=== PATIENT | male | born 1945 | race Caucasian/White ===

== ENCOUNTER → 2017-06-09 | Outpatient (CLI) | payer OTHER ==
[2016-10-14 12:17] VITALS: BP 124/66
[2017-06-09 09:13] LABS: CREATININE 1.04 mg/dL (0.70-1.30)
--- NOTE | 2017-06-11 13:38 | MRI ---
HISTORY: Viral hepatitis-B. Study: MRI of the abdomen with and without contrast. Technique: Multiplanar/multisequence imaging of the liver after 19 cc of Omniscan IV contrast was giv en. MRCP sequences were also performed. Comparison: CT chest dated October 12, 2016. Findings: Multiple benign appearing sub cm cystic lesions are seen within liver. These do not demonstrate contr ast enhancement. The liver otherwise appears normal. The gallbladder is surgically absent. No signs t o suggest cirrhosis or portal hypertension. The visualized spleen, pancreas, kidneys, and adrenal gla nds appear normal. The visualized bowel appears normal. No free air free fluid. No pathologic lymphad enopathy. MRCP sequences demonstrate no evidence of intra/extra ductal biliary dilatation, stone, or focal stenosis. No areas of abnormal contrast enhancement. IMPRESSION: Unremarkable MRI of the abdomen. Reported By:
== END ==
LOC: RAD 08:35
PROVIDERS: ATTEND Internal Medicine
DX: B19.10 Unspecified viral hepatitis B without hepatic coma (principal)
CPT/HCPCS: 36415; 74182; 82565; 84520

== ENCOUNTER 2017-09-06 02:24 | Emergency (ER) | payer OTHER ==
[2017-09-06] MEDS ORDERED: NS 1000 ML 1,000 ML IV ONE (02:39)
[2017-09-06] MEDS ORDERED: NS 1000 ML 1,000 ML ONE (02:41)
[2017-09-06 02:50] VITALS: BMI 25.4
--- NOTE | 2017-09-06 02:51 | DR.GENAD ---
HPI - Complaint/Symptoms Chief Complaint Doctors Comments: Patient states he has been having a cold, cough fever and chill for the past 24 hours getting worst this morning. His states he has had a bad cough with thick mucous for over a week with sore throat and chills and not being able to get him warm tonight. States she has been putting a lot of cover, blankets on the patient and the patient has two pairs of pants and still cannot get warm. Patient denies chest pain or SOB. States he is a patient of Dr. Irwin. He denies tobacco or alcohol usage. States he has been having nocturia and his stomach hurts like he is going to have diarrhea.. States he has not been around anyone with the flu and no other family members are sick. Patient states he has gone to the bathroom two times tonight to have a bowel movement. - Nurses notes reviewed Nurses Notes Review: Yes - Source History Provided: Patient, Family Member - Mode of Arrival Mode of Arrival: Ambulatory - Timing Came on: Gradually - Duration Duration: Constant How lon Duration: Weeks - Location Location: cold, cough, chills - Severity Severity: Moderate - Modifying Factors Worsens:: nothing Improves:: nothing PMH - PMH Past Medical History: Anemia, Arthritis Past Surgical History: Yes Surgical History: Cholecystectomy, Ortho Surgery - Social History Do you use any recreational Drugs:: No ROS - Review of Systems Constitutional: No Symptoms Reported, Chills, Fever, Weakness, Loss of Appetite Eyes: No Symptoms Reported ENTM: No Symptoms Reported, Nose Discharge, Nose Congestion, Throat Pain. negative: See HPI, Ear Pain, Ear Discharge, Pulling on Ears, Hearing Loss, Nose Pain, Epistaxis, Mouth Pain, Mouth Swelling, Loose Teeth, Drooling, Throat Swelling, Ear Foreign Body Respiratoy: No Symptoms Reported, Productive Cough Cardiovascular: No Symptoms Reported. negative: See HPI, Chest Pain, Edema, Palpitations, Syncope, Cyanosis, Skin Mottling, Other Gastrointestinal/Abdominal: Abdominal Pain, Nausea. negative: No Symptoms Reported, See HPI, Constipation, Diarrhea, Vomiting, Food Intolerance, Other Genitourinary: No Symptoms Reported, Frequency. negative: See HPI, Discharge, Dysuria, Hematuria, Pain, Bleeding, Other Neurological: No Symptoms Reported. negative: See HPI, Anxiety, Depressed, Emotional Problems, Headache, Numbness, Paresthesia, Pre-existing Deficit, Seizure, Tingling, Tremors, Weakness, Dizziness, Problems Walking, Speech Problem, Other Musculoskeletal: No Symptoms Reported Integumentary: No Symptoms Reported. negative: See HPI, Change in Color, Change in Hair/Nails, Dryness, Lesions, Lumps, Rash, Itching, Wound, Bruises, Juandice, Other Hematologic/Lymphatic: No Symptoms Reported. negative: See HPI, Anemia, Blood Clots, Easy Bleeding, Easy Bruising, Swollen Glands, Lymphadenopathy, Other Endocrine: No Symptoms Reported Psychiatric: No Symptoms Reported. negative: See HPI, Anxiety, Depression, Hallucinations, Excessive crying, Suicidal, Other PE - Vital Signs Vitals: Temperature 98.7 F Pulse Rate [Standing] 95 Pulse Rate [Sitting] 88 Pulse Rate [Lying] 86 Pulse Rate 92 Respiratory Rate 18 Blood Pressure [Right Arm] 124/66 Blood Pressure [Left Arm] 132/64 Blood Pressure [Standing] 76/49 Blood Pressure [Sitting] 102/61 Blood Pressure [Lying] 108/60 Blood Pressure 87/51 O2 Sat by Pulse Oximetry 92 - General Limitations: No Limitations General Appearance: Alert, In Distress (moderate) - Head Head Exam: Normal Inspection, Atraumatic, Normocephalic - Eyes Eye exam: Normal Appearance, PERRL, EOMI. negative: Scleral Icterus, Conjunctival Injection, Nystagmus, Miosis, Mydrasis, Periorbital Swelling, Periorbital Tenderness, Other - ENT ENT Exam: Normal Exam, Normal Oropharynx, Normal External Ear Exam, Mucous Membranes Moist, TM's Normal Bilaterally External Ear Exam: Normal External Inspection TM/Canal Exam: Bilateral Normal Nose Exam: Normal Nose Exam Mouth Exam: Normal Inspection Throat Exam: Normal Inspection - Neck Neck Exam: Normal Inspection, Full ROM, Trachea Midline - Chest Chest Inspection: Normal Inspection, Symmetric Chest Wall Rise. negative: Tenderness, Rash, Abscess, Other - Respiratory Respiratory Exam: Normal Lung Sounds Bilat Respiratory Exam: Bilateral Clear to Auscultation - Cardiovascular Cardiovascular Exam: Regular Rate, Normal Rhythm, Normal Heart Sounds. negative : Bradycardia, Tachycardia, Irregular Rhythm, Systolic Murmur, Diastolic Murmur , Rubs, Gallop, Clicks, JVD, +S1, +S2, +S3, +S4, Other - Abdominal Exam Abdominal Exam: Normal Inspection, Normal Bowel Sounds, Soft Abdominal Tenderness: Epigastrium, Mild. negative: RUQ, RLQ, LUQ, LLQ, Suprapubic, Diffuse, Moderate, Severe, Other - Extremities Extremities Exam: Normal Inspection, Full ROM, Normal Capillary Refill. negative: Tenderness, Edema, Joint Swelling, Calf Tenderness, Other - Back Back Exam: Normal Inspection, Full ROM. negative: Tenderness, (R) CVA Tenderness, (L) CVA Tenderness, Muscle Spasm, Paraspinal Tenderness, Vertebral Tenderness, Rashes, (R) Sciatic Notch Tenderness, (L) Sciatic Notch Tendern, (R ) Straight Leg Raise, (L) Straight Leg Raise, Other - Neurologic Neurological Exam: Alert, Oriented X3, CN II-XII Intact, Reflexes Normal. negative: Normal Gait (gait not tested) - Psychiatric Psychiatric Exam: Normal Affect, Normal Mood - Skin Skin Exam: Warm, Dry, Intact, Normal Color ROR - Labs Reviewed Laboratory Results Reviewed?: Yes (all labs and x-ray results reviewed and discussed with patient and spouse) Result Diagrams: 09/06/17 02:45 09/06/17 02:45 Laboratory: WBC 12.9 X10^3/uL (3.6-10.0) H 09/06/17 02:45 RBC 4.38 X10^6/uL (4.7-6.0) L 09/06/17 02:45 Hgb 13.8 g/dL (13.5-18.0) 09/06/17 02:45 Hct 40.2 % (42.0-54.0) L 09/06/17 02:45 MCV 91.8 fL (80.0-100.0) 09/06/17 02:45 MCH 31.6 pg (27.0-34.0) 09/06/17 02:45 MCHC 34.4 g/dL (33.0-35.0) 09/06/17 02:45 RDW 12.0 % (11.6-16.5) 09/06/17 02:45 Plt Count 137 X10^3/uL (150.0-450.0) L 09/06/17 02:45 MPV 8.4 fL (7.4-11.0) 09/06/17 02:45 Neut % 89.2 % (42.0-75.0) H 09/06/17 02:45 Lymph % 4.9 % (21.0-51.0) L 09/06/17 02:45 [place] % 5.7 % (0.0-13.0) 09/06/17 02:45 Eos % 0.0 % (0.9-2.9) L 09/06/17 02:45 Baso % 0.2 % (0.2-1.0) 09/06/17 02:45 Neut # 11.5 x10^3/uL (2.2-4.8) H 09/06/17 02:45 Lymph # 0.6 X10^3/uL (1.3-2.9) L 09/06/17 02:45 [place] # 0.7 x10^3/uL (0.3-0.8) 09/06/17 02:45 Eos # 0.0 x10^3/uL (0.0-0.2) 09/06/17 02:45 Baso # 0.0 X10^3/uL (0.0-0.1) 09/06/17 02:45 Absolute Nucleated RBC 0.0 /100WBC 09/06/17 02:45 Sodium 138 mmol/L (136-145) 09/06/17 02:45 Corrected Sodium 140 mmol/L (136-145) 09/06/17 02:45 Potassium 3.8 mmol/L (3.5-5.1) 09/06/17 02:45 Chloride 101 mmol/L (98-107) 09/06/17 02:45 Carbon Dioxide 24.7 mmol/L (21-32) 09/06/17 02:45 BUN 18 mg/dL (7-18) 09/06/17 02:45 Creatinine 1.36 mg/dL (0.70-1.30) H 09/06/17 02:45 Est GFR (MDRD) Af Amer > 60 (>60) 09/06/17 02:45 Est GFR (MDRD) Non-Af 55 (>60) L 09/06/17 02:45 Glucose 190 mg/dL (65-99) H 09/06/17 02:45 Calcium 8.5 mg/dL (8.5-10.1) 09/06/17 02:45 Corrected Calcium TNP 09/06/17 02:45 Total Bilirubin 1.20 mg/dL (0.2-1.0) H 09/06/17 02:45 AST 25 Units/L (15-37) 09/06/17 02:45 ALT 19 Units/L (12-78) 09/06/17 02:45 Alkaline Phosphatase 58 Units/L (46-116) 09/06/17 02:45 Total Protein 7.2 g/dL (6.4-8.2) 09/06/17 02:45 Albumin 3.4 g/dL (3.4-5.0) 09/06/17 02:45 Globulin 3.8 g/dL (2.5-4.5) 09/06/17 02:45 Albumin/Globulin Ratio 0.9 Ratio (1.1-2.1) L 09/06/17 02:45 Amylase 39 Units/L (25-115) 09/06/17 02:45 Lipase 91 Units/L (73-393) 09/06/17 02:45 Specimen Type Clean catch urine 09/06/17 03:17 Urine Color Mirtha (YELLOW) 09/06/17 03:17 Urine Appearance Clear (CLEAR) 09/06/17 03:17 Urine pH 6.5 (5.0 - 8.0) 09/06/17 03:17 Ur Specific [place] 1.010 (1.000-1.030) 09/06/17 03:17 Urine Protein 2+ (NEGATIVE) 09/06/17 03:17 Urine Glucose (UA) Negative (NEGATIVE) 09/06/17 03:17 Urine Ketones 1+ (NEGATIVE) 09/06/17 03:17 Urine Occult Blood 1+ (NEGATIVE) 09/06/17 03:17 Urine Nitrite Negative (NEGATIVE) 09/06/17 03:17 Urine Bilirubin Negative (NEGATIVE) 09/06/17 03:17 Urine Urobilinogen 1+ (NORMAL) 09/06/17 03:17 Ur Leukocyte Esterase 1+ (NEGATIVE) 09/06/17 03:17 Urine RBC Rare /HPF (NEGATIVE) 09/06/17 03:17 Urine WBC 0-1 /HPF (NEGATIVE) 09/06/17 03:17 Ur Squamous Epith Cells Rare /HPF (NEGATIVE) 09/06/17 03:17 Urine Bacteria Negative /HPF (NEGATIVE) 09/06/17 03:17 Urine Mucus Few /HPF (NEGATIVE) 09/06/17 03:17 Ur Culture Indicated? No/not indicated 09/06/17 03:17 Influenza Type A (PCR) Negative (NEGATIVE) 09/06/17 02:39 Influenza Type B (PCR) Negative (NEGATIVE) 09/06/17 02:39 Streptococcus Screen Negative (NEGATIVE) 09/06/17 03:17 - XRAY XRAY Interpreted by: Radiologist (Abdominal series: No acute cardiopulmonary abnormality. Findings suggest constipation.) - Diagnosis Discharge Problem: Orthostatic hypotension, Hyperglycemia, Pharyngitis Bronchitis, acute Qualifiers: Bronchitis organism: other organism Qualified Code(s): J20.8 - Acute bronchitis due to other specified organisms Constipation Qualifiers: Constipation type: other constipation type Qualified Code(s): K59.09 - Other constipation - Discharge Plan Disposition: 01 HOME, SELF-CARE Condition: Stable Prescriptions: Levofloxacin [LEVAQUIN TAB 500 MG *] 500 mg PO DAILY #10 tab - Follow ups/Referrals Follow ups/Referrals: Chan Irwin [Primary Care Provider] - 3 days - Instructions Instructions: Acute Bronchitis, Orthostatic Hypotension, Constipation, Adult, [id number], Hyperglycemia
[2017-09-06 02:56] LABS: BASOPHILS % (AUTO) 0.2 % (0.2-1.0); HEMATOCRIT 40.2 % (42.0-54.0); HEMOGLOBIN 13.8 g/dL (13.5-18.0); LYMPHOCYTES # (AUTO) 0.6 X10^3/uL (1.3-2.9); LYMPHOCYTES % (AUTO) 4.9 % (21.0-51.0); MEAN CORPUSCULAR HEMOGLOBIN 31.6 pg (27.0-34.0); MEAN CORPUSCULAR HGB CONC 34.4 g/dL (33.0-35.0); MEAN CORPUSCULAR VOLUME 91.8 fL (80.0-100.0); MEAN PLATELET VOLUME 8.4 fL (7.4-11.0); MONOCYTES # (AUTO) 0.7 x10^3/uL (0.3-0.8); MONOCYTES % (AUTO) 5.7 % (0.0-13.0); NEUTROPHILS # (AUTO) 11.5 x10^3/uL (2.2-4.8); NEUTROPHILS % (AUTO) 89.2 % (42.0-75.0); PLATELET COUNT 137 X10^3/uL (150.0-450.0); RED BLOOD COUNT 4.38 X10^6/uL (4.7-6.0); WHITE BLOOD COUNT 12.9 X10^3/uL (3.6-10.0)
[2017-09-06] MEDS ORDERED: ZOFRAN INJ 4 MG VIAL IVP ONE (02:57)
[2017-09-06 03:10] LABS: ALANINE AMINOTRANSFERASE 19 Units/L (12-78); ALBUMIN 3.4 g/dL (3.4-5.0); ALKALINE PHOSPHATASE 58 Units/L (46-116); AMYLASE 39 Units/L (25-115); ASPARTATE AMINO TRANSFERASE 25 Units/L (15-37); BLOOD UREA NITROGEN 18 mg/dL (7-18); CALCIUM 8.5 mg/dL (8.5-10.1); CARBON DIOXIDE 24.7 mmol/L (21-32); CHLORIDE 101 mmol/L (98-107); COR NA(FOR HYPERGLY) 140 mmol/L (136-145); CREATININE 1.36 mg/dL (0.70-1.30); LIPASE 91 Units/L (73-393); SODIUM 138 mmol/L (136-145); TOTAL PROTEIN 7.2 g/dL (6.4-8.2); eGFR BLACK RACES > 60 (>60); eGFR NON BLACK RACES 55 (>60)
[2017-09-06 03:43] LABS: BILIRUBIN,URINE NEGATIVE (NEGATIVE); BLOOD/HEMOGLOBIN,URINE 1+ (NEGATIVE); GLUCOSE, URINE NEGATIVE (NEGATIVE); KETONES,URINE 1+ (NEGATIVE); LEUKOCYTE ESTERASE ,URINE 1+ (NEGATIVE); NITRITES,URINE NEGATIVE (NEGATIVE); PH,URINE 6.5 (5.0 - 8.0); PROTEIN,URINE 2+ (NEGATIVE); UROBILINOGEN,URINE 1+ (NORMAL)
--- NOTE | 2017-09-06 03:47 | RAD ---
Acute abdominal series, four views Indication: Abdominal pain Comparison: None Findings: The heart size is normal. No focal consolidation, effusion or pneumothorax is identified. M oderate stool is present throughout the colon. The bowel gas pattern is otherwise nonobstructive. No free air or pneumatosis is identified. No pathologic calcifications are seen. Visualized osseous stru ctures are intact. Impression: No acute cardiopulmonary abnormality. Findings suggestive for constipation. Otherwise, no acute abdominal abnormality. Reported By:
[2017-09-06 03:54] LABS: APPEARANCE,URINE CLEAR (CLEAR); BACTERIA,URINE NEGATIVE /HPF (NEGATIVE); COLOR,URINE AMBER (YELLOW); MUCUS,URINE FEW /HPF (NEGATIVE); RBC,URINE RARE /HPF (NEGATIVE); SQUAMOUS EPITHELIAL CELL,UR RARE /HPF (NEGATIVE)
[2017-09-06] MEDS ORDERED: ROCEPHIN VIAL 1 GM 1 GM in NS 100 ML IV + SPIKE MINIBAG* 100 ML IV ONE (04:21)
[2017-09-06] MEDS ORDERED: NS 100 ML IV 100 ML IV ONE (04:35)
[2017-09-06] MEDS ORDERED: ROCEPHIN VIAL 1 GM ONE (04:35)
[2017-09-06] MEDS ORDERED: NS 250 ML IV 250 ML IV ONE ×2 (04:59)
[2017-09-06 05:31] VITALS: BP 124/67
== END 2017-09-06 05:31 | disposition home or self-care (01) ==
LOC: ER 02:24
DX: J20.8 Acute bronchitis due to other specified organisms (principal); I95.1 Orthostatic hypotension; K59.09 Other constipation; R73.9 Hyperglycemia, unspecified; J02.9 Acute pharyngitis, unspecified
CPT/HCPCS: 36415; 74022; 80053; 81001; 82150; 83690; 85025; 87070; 87502; 87880; 96365; 96367; 96374; 99282; 99283; A4216; A4222; J0696

== ENCOUNTER 2023-04-21 04:04 | Observation (INO) ==
[2023-04-21 04:27] VITALS: TEMP 98.2; BMI 23.6
--- NOTE | 2023-04-21 04:31 | EKG ---
Test Reason : CHEST PAIN Blood Pressure : */* mmHG Vent. Rate : 67 BPM Atrial Rate : 67 BPM P-R Int : 194 ms QRS Dur : 144 ms QT Int : 474 ms P-R-T Axes : 79 5 43 degrees QTc Int : 500 ms Normal sinus rhythm with sinus arrhythmia Possible Left atrial enlargement Right bundle branch block Abnormal ECG No previous ECGs available Confirmed by Ranulfo Alatorre ([id number]) on 04/21/2023 8:04:22 AM Referred By: Confirmed By: Ranulfo Alatorre
[2023-04-21 04:38] LABS: BASOPHILS % (AUTO) 0.6 % (0.2-1.0); EOSINOPHILS # (AUTO) 0.4 x10^3/uL (0.0-0.2); EOSINOPHILS % (AUTO) 8.6 % (0.9-2.9); HEMATOCRIT 39.7 % (42.0-54.0); HEMOGLOBIN 13.6 g/dL (13.5-18.0); LYMPHOCYTES # (AUTO) 1.6 X10^3/uL (1.3-2.9); LYMPHOCYTES % (AUTO) 33.8 % (21.0-51.0); MEAN CORPUSCULAR HEMOGLOBIN 32.3 pg (27.0-34.0); MEAN CORPUSCULAR HGB CONC 34.3 g/dL (33.0-35.0); MONOCYTES # (AUTO) 0.5 x10^3/uL (0.3-0.8); MONOCYTES % (AUTO) 10.2 % (0.0-13.0); NEUTROPHILS # (AUTO) 2.2 x10^3/uL (2.2-4.8); NEUTROPHILS % (AUTO) 46.8 % (42.0-75.0); PLATELET COUNT 118 X10^3/uL (150.0-450.0); RED BLOOD COUNT 4.22 X10^6/uL (4.7-6.0); RED CELL DISTRIBUTION WIDTH 12.7 % (11.6-16.5); WHITE BLOOD COUNT 4.7 X10^3/uL (3.6-10.0)
--- NOTE | 2023-04-21 04:39 | DR.CP ---
HPI Time Seen Time Seen by Provider: 04/21/23 04:25 PCP Primary Care Physician: SCHUYLER HPI Comment HPI Comment: Patient is 77yr old male in er with mid midsternal chest pain, sharp, 10/10 that started suddenly at 03:15 waking him from sleep. Denies sim ilar previous chest pain. Complaint Chief Complaint:: PT AMBULATORY IN ED WITH C/O MIDSTERNAL CHEST PAIN. STATES HE WOKE UP FROM SLEEP AROUND 3:15 WITH SEVERE CHEST PAIN. COVID-19 Coronavirus risk:travel/contact w/high risk person: No Has patient experienced Coronavirus symptoms: No Reviewed Nurses Notes Review: Yes Source History Provided: Patient Mode of Arrival Mode of Arrival: Ambulatory Timing Onset of Chief Complaint: 04/21/23 PMH PMH Past Medical History: Yes Past Medical History: Anemia, Arthritis, COPD, Coronary Artery Disease, Dyslipidemia and Liver Disease Past Medical History Comment: THROAT CANCER SKIN CANCER Past Surgical History: Yes Surgical History: Abdominal Surgery, Angioplasty/Stents, Cholecystectomy and Ortho Surgery Past Surgical History Comment: HERNIA REPAIR LEFT THUMB Family History History of Family Medical Conditions: Yes Family Medical History: Cancer and Coronary Artery Disease Social History Does patient currently use any type of tobacco product: No Have you used tobacco products in the last 12 months: No Type of Tobacco Use: None Does any household member use tobacco: No Alcohol Use: None Do you use any recreational Drugs:: No Lives With: Spouse Lives Where: Home Travel Risk Coronavirus risk:travel/contact w/high risk person: No Has patient experienced Coronavirus symptoms: No Infectious screening In the last 2 months have you had wt loss of >10#?: NO Have you had fever, night sweats or hemotysis?: No Have you traveled outside the country in the last 6 months?: No Isolation: Standard PE Vitals Vitals: Vital Signs Temperature 98.2 F Pulse Rate 62 Pulse Rate 59 Pulse Rate 62 Pulse Rate 62 Pulse Rate 64 Pulse Rate 62 Pulse Rate 65 Pulse Rate 67 Pulse Rate 70 Pulse Rate 68 Respiratory Rate 19 Respiratory Rate 19 Respiratory Rate 21 Respiratory Rate 16 Respiratory Rate 17 Respiratory Rate 13 Respiratory Rate 16 Respiratory Rate 20 Respiratory Rate 19 Respiratory Rate 22 Blood Pressure 145/73 Blood Pressure 160/78 Blood Pressure 149/75 Blood Pressure 172/91 Blood Pressure 165/94 Blood Pressure 148/70 O2 Sat by Pulse Oximetry 95 O2 Sat by Pulse Oximetry 97 O2 Sat by Pulse Oximetry 97 O2 Sat by Pulse Oximetry 95 O2 Sat by Pulse Oximetry 96 O2 Sat by Pulse Oximetry 95 O2 Sat by Pulse Oximetry 96 O2 Sat by Pulse Oximetry 97 O2 Sat by Pulse Oximetry 97 O2 Sat by Pulse Oximetry 95 ROR Labs Reviewed 04/21/23 04:25 04/21/23 04:25 Laboratory: WBC 4.7 X10^3/uL (3.6-10.0) 04/21/23 04:25 RBC 4.22 X10^6/uL (4.7-6.0) L 04/21/23 04:25 Hgb 13.6 g/dL (13.5-18.0) 04/21/23 04:25 Hct 39.7 % (42.0-54.0) L 04/21/23 04:25 MCV 94.0 fL (80.0-100.0) 04/21/23 04:25 MCH 32.3 pg (27.0-34.0) 04/21/23 04:25 MCHC 34.3 g/dL (33.0-35.0) 04/21/23 04:25 RDW 12.7 % (11.6-16.5) 04/21/23 04:25 Plt Count 118 X10^3/uL (150.0-450.0) L 04/21/23 04:25 MPV 9.0 fL (7.4-11.0) 04/21/23 04:25 Neut % (Auto) 46.8 % (42.0-75.0) 04/21/23 04:25 Lymph % (Auto) 33.8 % (21.0-51.0) 04/21/23 04:25 [place] % (Auto) 10.2 % (0.0-13.0) 04/21/23 04:25 Eos % (Auto) 8.6 % (0.9-2.9) H 04/21/23 04:25 Baso % (Auto) 0.6 % (0.2-1.0) 04/21/23 04:25 Neut # (Auto) 2.2 x10^3/uL (2.2-4.8) 04/21/23 04:25 Lymph # (Auto) 1.6 X10^3/uL (1.3-2.9) 04/21/23 04:25 [place] # (Auto) 0.5 x10^3/uL (0.3-0.8) 04/21/23 04:25 Eos # (Auto) 0.4 x10^3/uL (0.0-0.2) H 04/21/23 04:25 Baso # (Auto) 0.0 X10^3/uL (0.0-0.1) 04/21/23 04:25 Absolute Nucleated RBC 0.0 /100WBC 04/21/23 04:25 PT 15.7 SECONDS (11.8-14.3) 04/21/23 04:25 INR Target Range - 04/21/23 04:25 INR 1.28 (0.8-1.3) 04/21/23 04:25 APTT 35.6 SECONDS (22.9-36.5) 04/21/23 04:25 PTT Comment - 04/21/23 04:25 D-Dimer 0.40 ug/ml (0.0-0.57) 04/21/23 04:25 Sodium 141 mmol/L (136-145) 04/21/23 04:25 Corrected Sodium TNP 04/21/23 04:25 Potassium 3.6 mmol/L (3.5-5.1) 04/21/23 04:25 Chloride 102 mmol/L (98-107) 04/21/23 04:25 Carbon Dioxide 32.6 mmol/L (21-32) H 04/21/23 04:25 BUN 18 mg/dL (7-18) 04/21/23 04:25 Creatinine 0.94 mg/dL (0.70-1.30) 04/21/23 04:25 Est GFR (MDRD) Af Amer > 60 (>60) 04/21/23 04:25 Est GFR (MDRD) Non-Af > 60 (>60) 04/21/23 04:25 Glucose 83 mg/dL (65-99) 04/21/23 04:25 Calcium 8.5 mg/dL (8.5-10.1) 04/21/23 04:25 Corrected Calcium TNP 04/21/23 04:25 Total Bilirubin 0.70 mg/dL (0.2-1.0) 04/21/23 04:25 AST 48 Units/L (15-37) H 04/21/23 04:25 ALT 30 Units/L (12-78) 04/21/23 04:25 Alkaline Phosphatase 82 Units/L (46-116) 04/21/23 04:25 Creatine Kinase 87 Units/L (39-308) 04/21/23 06:28 Troponin I High Sens 8.8 ng/L (4.0-60.0) 04/21/23 06:28 Total Protein 7.0 g/dL (6.4-8.2) 04/21/23 04:25 Albumin 3.9 g/dL (3.4-5.0) 04/21/23 04:25 Globulin 3.1 g/dL (2.5-4.5) 04/21/23 04:25 Albumin/Globulin Ratio 1.3 Ratio (1.1-2.1) 04/21/23 04:25 SARS-CoV-2 (PCR) Negative (NEGATIVE) 04/21/23 04:22 Influenza Type A (PCR) Negative (NEGATIVE) 04/21/23 04:22 Influenza Type B (PCR) Negative (NEGATIVE) 04/21/23 04:22 RSV (PCR) Negative (NEGATIVE) 04/21/23 04:22 Opioid Opioid Risk Tool Age (Rajeev box if 16-45): No History of Preadolescent Sexual Abuse: No Total: 0 Total Score Risk Category: Low Risk Copyright: Tom KING predicting aberrant behaviors Discharge Plan Discharge Plan Patient Disposition: 01 HOME, SELF-CARE Condition: Stable Prescriptions: No Action celecoxib 200 mg capsule 200 mg PO BID PRN (Reason: pain) atorvastatin 80 mg tablet 80 mg PO QDAY clopidogrel 75 mg tablet 75 mg PO QDAY tamsulosin 0.4 mg capsule 0.4 mg PO QPM albuterol sulfate 90 mcg/actuation HFA aerosol inhaler 1 puff INHALATION QDAY PRN budesonide-formoterol [Symbicort] 80-4.5 mcg/actuation HFA aerosol inhaler 2 puff INHALATION BID silodosin 4 mg capsule 4 mg PO QDAY Vemlidy 25 mg tablet 25 mg PO QDAY baclofen 5 mg tablet 5 mg PO BID Health Concerns: Post Hospitalization: new medications and changes needed to prevent readmission or further decline. Pt educated and given instructions on all concerns. Plan of Treatment: Continue with present treatment and follow up plan. Pt is to keep follow up appointment as instructed and take medications as ordered. Orders to Discharge Patient Discharge Orders: Transfer (Routine); Ordered 04/21/23 Ordered By: LEELA DEVRIES Follow ups/Referrals Follow ups/Referrals: Chan Irwin [Primary Care Provider] - 3 days Instructions Stand Alone Forms: Post Hospital Follow Up Care
[2023-04-21 04:47] LABS: ALANINE AMINOTRANSFERASE 30 Units/L (12-78); ALBUMIN 3.9 g/dL (3.4-5.0); ALKALINE PHOSPHATASE 82 Units/L (46-116); ASPARTATE AMINO TRANSFERASE 48 Units/L (15-37); BLOOD UREA NITROGEN 18 mg/dL (7-18); CALCIUM 8.5 mg/dL (8.5-10.1); CARBON DIOXIDE 32.6 mmol/L (21-32); CHLORIDE 102 mmol/L (98-107); CREATINE KINASE 97 Units/L (39-308); CREATININE 0.94 mg/dL (0.70-1.30); GLUCOSE 83 mg/dL (65-99); POTASSIUM 3.6 mmol/L (3.5-5.1); SODIUM 141 mmol/L (136-145); eGFR NON BLACK RACES > 60 (>60)
[2023-04-21] MEDS ORDERED: MORPHINE SULFATE INJ 4 MG IVP ONE (05:05)
[2023-04-21] MEDS ORDERED: ZOFRAN INJ 4 MG VIAL IVP ONE (05:05)
[2023-04-21] MEDS ORDERED: ZOFRAN INJ 4 MG VIAL ONE (05:07)
[2023-04-21] MEDS ORDERED: MORPHINE SULFATE INJ 4 MG ONE (05:07)
[2023-04-21 05:08] LABS: INR 1.28 (0.8-1.3)
--- NOTE | 2023-04-21 06:06 | RAD ---
HISTORYMidsternal chest painSTUDYChest AP portableCOMPARISONChest CT 05/20/21FINDINGSHeart is mildly enlarged. No congestive heart failure is noted. [place] normal. Aorta is calcified. Lungs are hyperinflated but free of acute infiltrates. There is abnormal parenchymal density in the right lung apex which could represent a real finding or could be due to a confluence of overlying skeletal shadows. Correlation with chest CT is recommended. No pleural effusions are identified. Bony thorax is unremarkable.IMPRESSIONAbnormal parenchymal density in the right lung apex which could represent pleural parenchymal scarring, confluence of overlying skeletal shadows, or an apical mass. Chest CT WITH CONTRAST is recommended for further evaluation.Hyperinflation consistent with COPD in the appropriate clinical settingNo acute infiltratesElectronically signed by: GEMMA SIMON (Apr 21, 2023 06:04:27)
[2023-04-21] MEDS ORDERED: NS 100 ML IV 100 ML ONE (06:15)
[2023-04-21] MEDS ORDERED: OMNIPAQUE 350 mg/mL 100 mL BTL 100 ML ONE (06:16)
[2023-04-21 06:22] VITALS: BP 145/73
--- NOTE | 2023-04-21 07:12 | CT ---
HISTORYAbnormal chest x-raySTUDYCT chest with contrastTechnique: Axial post-contrast images with coronal and sagittal reformats. Dose reduction procedures were used with mA/kv adjusted for body size.[id number] on of the mediastinum demonstrated no evidence for mediastinal mass, enlarged mediastinal or enlarged hilar adenopathy. There is dilatation of the ascending aorta maximum AP diameter 4.2 cm, maximum transverse diameter 4 cm. Coronary artery calcifications are present. No pleural effusions are identified. No chest wall or axillary abnormality is identified. Those portions of the upper abdominal organs visualized appeared within normal limits. Examination of the lung rodriguez demonstrated biapical pleural parenchymal scarring right slightly greater than left likely accounting for the abnormal apical density noted on the recent chest x-ray. Finding is stable when compared to the prior examination. No significant nodules, masses, alveolar infiltrates, areas of consolidation, peribronchial thickening, or bronchiectasis identified. Bibasilar subsegmental atelectasis present.IMPRESSIONBiapical pleural parenchymal scarring right slightly greater than left and likely accounting for the abnormal density noted on the recent chest x-ray. A right apical mass is not felt to be present.Lungs clear with the exception of areas of bibasilar subsegmental atelectasis, stageDilatation of the ascending thoracic aorta maximum diameter AP 4.2 cm, transverse 4 cm.Electronically signed by: GEMMA SIMON (Apr 21, 2023 07:11:26)
[2023-04-21] MEDS ORDERED: CELEBREX PO PRN (07:56)
[2023-04-21] MEDS ORDERED: VENTOLIN or PROAIR HFA IN PRN (07:56)
[2023-04-21] MEDS ORDERED: PROVENTIL NEB TX 0.083% 2.5MG/ 3ML NEB PRN ×2 (08:00→08:02)
[2023-04-21 08:01] VITALS: RESP 15; O2SAT 97
[2023-04-21] MEDS ORDERED: PLAVIX PO SCH (09:00)
[2023-04-21] MEDS ORDERED: TENOFOVIR ALAFENAMIDE 25 MG PO SCH ×2 (09:00→21:00)
[2023-04-21] MEDS ORDERED: SILODOSIN 4 MG PO SCH (09:00)
[2023-04-21] MEDS ORDERED: LIPITOR TAB 80 MG PO SCH ×2 (09:00→21:00)
[2023-04-21] MEDS ORDERED: LIORESAL PO SCH (09:00)
[2023-04-21] MEDS ORDERED: BUDESONIDE FORMOTEROL IN SCH (09:00)
[2023-04-21] MEDS ORDERED: [UNRECOGNIZED DRUG - OTHER] IN SCH (09:00)
[2023-04-21] MEDS ORDERED: PULMICORT NEB TX 0.5 MG NEB SCH (09:00)
[2023-04-21] MEDS ORDERED: PLAVIX ONE (09:03)
[2023-04-21 10:04] VITALS: PULSE 57
--- NOTE | 2023-04-21 10:12 | EKG ---
Test Reason : chest pain Blood Pressure : */* mmHG Vent. Rate : 53 BPM Atrial Rate : 53 BPM P-R Int : 184 ms QRS Dur : 134 ms QT Int : 464 ms P-R-T Axes : 67 1 38 degrees QTc Int : 435 ms Sinus bradycardia Right bundle branch block Abnormal ECG When compared with ECG of 21-APR-2023 04:29, QT has shortened Confirmed by Ranulfo Alatorre ([id number]) on 04/22/2023 8:23:38 AM Referred By: Confirmed By: Ranulfo Alatorre
--- NOTE | 2023-04-21 10:43 | DR.CONSULT ---
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- woke up with vague left sided cp- came to ER- initial ekg: nsr lae rbbb- 2 trops seperated by 2 hours ok, no ekg change at 6 hour ekg- feels better- walking to bath[place]- echo pending- has 4.2 cm TAA he never knew of that will need f/u ct 6 months Past Medical History Past Medical History: Anemia, Arthritis, COPD, Coronary Artery Disease, Dyslipidemia and Liver Disease Additional Medical History: Cataracts, Hepatitis B, Hx of hernia, Back Pain, Previous Blood Transfusion, Throat Cancer w/ Radiation, Skin Cancer Past Surgical History Surgical History: Abdominal Surgery, Angioplasty/Stents, Cholecystectomy and Ortho Surgery Additional Surgical History: Skin Cancer removed, Cataracts removed Family History Family Medical History: Cancer and Coronary Artery Disease Social History Does patient currently use any type of tobacco product: No Have you used tobacco products in the last 12 months: No Type of Tobacco Use: None Does any household member use tobacco: No Alcohol Use: None Drug Use: None Medications Home Medications: aspirin Allergy (Verified 09/06/17 02:50) shrimp Allergy (Verified 09/06/17 02:50) CONTINUE taking the following medications albuterol sulfate 90 mcg/actuation aerosol inhaler 1 puff inhalation QDAY PRN 04/21/23 [History] atorvastatin 80 mg tablet 80 mg PO QDAY 04/21/23 [History] baclofen 5 mg tablet 5 mg PO BID 04/21/23 [History] budesonide-formoterol HFA 80 mcg-4.5 mcg/actuation aerosol inhaler (Symbicort) 2 puff inhalation BID 04/21/23 [History] celecoxib 200 mg capsule 200 mg PO BID PRN pain 04/21/23 [History] clopidogrel 75 mg tablet 75 mg PO QDAY 04/21/23 [History] tamsulosin 0.4 mg capsule (Flomax) 0.4 mg PO HS 04/21/23 [History] tenofovir alafenamide 25 mg tablet (Vemlidy) 25 mg PO QDAY 04/21/23 [History] Physical Exam Vital Signs: Vital Signs Temperature 98.2 F Pulse Rate 57 Pulse Rate 53 Pulse Rate 50 Pulse Rate 52 Pulse Rate 55 Pulse Rate 63 Pulse Rate 62 Pulse Rate 59 Pulse Rate 62 Pulse Rate 62 Pulse Rate 64 Pulse Rate 62 Pulse Rate 65 Pulse Rate 67 Pulse Rate 70 Pulse Rate 68 Respiratory Rate 15 Respiratory Rate 26 Respiratory Rate 24 Respiratory Rate 30 Respiratory Rate 18 Respiratory Rate 19 Respiratory Rate 19 Respiratory Rate 21 Respiratory Rate 16 Respiratory Rate 17 Respiratory Rate 13 Respiratory Rate 16 Respiratory Rate 20 Respiratory Rate 19 Respiratory Rate 22 Blood Pressure 145/73 Blood Pressure 160/78 Blood Pressure 149/75 Blood Pressure 172/91 Blood Pressure 165/94 Blood Pressure 148/70 O2 Sat by Pulse Oximetry 97 O2 Sat by Pulse Oximetry 97 O2 Sat by Pulse Oximetry 97 O2 Sat by Pulse Oximetry 97 O2 Sat by Pulse Oximetry 97 O2 Sat by Pulse Oximetry 92 O2 Sat by Pulse Oximetry 95 O2 Sat by Pulse Oximetry 97 O2 Sat by Pulse Oximetry 97 O2 Sat by Pulse Oximetry 95 O2 Sat by Pulse Oximetry 96 O2 Sat by Pulse Oximetry 95 O2 Sat by Pulse Oximetry 96 O2 Sat by Pulse Oximetry 97 O2 Sat by Pulse Oximetry 97 O2 Sat by Pulse Oximetry 95 alert ox3 nad no chest wall tenderness clear lungs hr 60 main soft abdomen no edema Plan (1) Chest pain: Status: Acute Narrative Support Text: get 3rd trop/ await echo- if both ok and able to walk around without issues- then can d/c to f/u with primary dietary manager (2) Hyperlipidemia: Status: Acute (3) Carotid stenosis: Status: Acute (4) Thoracic aortic aneurysm (TAA): Status: Acute Narrative Support Text: needs f/u CTA in 6-12 months
[2023-04-21] MEDS ORDERED: LOVENOX INJ 40 MG SYR SC SCH (12:00)
[2023-04-21] MEDS ORDERED: FLOMAX PO SCH ×2 (21:00)
== END 2023-04-21 13:05 | disposition home or self-care (01) ==
LOC: ER 04:12 → U 04:12
PROVIDERS: ADMIT Internal Medicine; ATTEND Internal Medicine

== ENCOUNTER 2024-01-23 17:15 | Inpatient (IN) ==
--- NOTE | 2024-01-23 17:36 | DR.N/VMALE ---
HPI Time Seen Time Seen by Provider: 01/23/24 17:20 HPI Comment HPI Comment: Patient has had stabbing chest pain, nausea, chills, sob that began today. 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 Patient had been feeling good prior to today. He has a h/o tobacco use that began at age 9-10 until age 38. H/o throat cancer diagnosed in 2007 tx'd with chemo and radiation therapy, the radiation therapy burned out his epiglottis and patient taught himself to swallow and has never had a G-tube. H/o thoracic aortic Aneurysm, carotid stenosis. 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 Patient denies: hemoptysis, palpitations, syncope, back pain, extremity weakness. PMH PMH Past Medical History: Anemia, Arthritis, COPD, Coronary Artery Disease, Dyslipidemia and Liver Disease Past Surgical History: Yes Surgical History: Abdominal Surgery, Angioplasty/Stents, Cholecystectomy and Ortho Surgery Family History Family Medical History: Cancer and Coronary Artery Disease Social History Do you use any recreational Drugs:: No ROS Review of Systems Constitutional: Chills, Fever and Malaise Eyes: No Symptoms Reported ENTM: No Symptoms Reported Respiratoy: No Symptoms Reported Cardiovascular: Chest Pain Gastrointestinal/Abdominal: Nausea; negative Diarrhea or Vomiting Genitourinary: No Symptoms Reported Neurological: No Symptoms Reported Musculoskeletal: No Symptoms Reported Integumentary: No Symptoms Reported Hematologic/Lymphatic: No Symptoms Reported Endocrine: No Symptoms Reported Psychiatric: No Symptoms Reported All Other Systems: Reviewed and Negative PE Vital Signs Vitals: Vital Signs Temperature 99.8 F Temperature 100.6 F Pulse Rate 66 Pulse Rate 71 Pulse Rate 72 Pulse Rate 70 Pulse Rate 71 Pulse Rate 72 Pulse Rate 72 Pulse Rate 73 Pulse Rate 74 Pulse Rate 75 Pulse Rate 75 Pulse Rate 76 Pulse Rate 79 Pulse Rate 79 Pulse Rate 79 Pulse Rate 79 Pulse Rate 85 Respiratory Rate 22 Respiratory Rate 20 Respiratory Rate 24 Respiratory Rate 23 Respiratory Rate 25 Respiratory Rate 25 Respiratory Rate 27 Respiratory Rate 24 Respiratory Rate 22 Respiratory Rate 25 Respiratory Rate 24 Respiratory Rate 23 Respiratory Rate 26 Respiratory Rate 18 Respiratory Rate 18 Blood Pressure 88/54 Blood Pressure 107/57 Blood Pressure 106/58 Blood Pressure 108/58 Blood Pressure 124/58 Blood Pressure 124/58 Blood Pressure 123/99 Blood Pressure 128/67 Blood Pressure 133/71 Blood Pressure 122/65 Blood Pressure 156/75 O2 Sat by Pulse Oximetry 97 O2 Sat by Pulse Oximetry 97 O2 Sat by Pulse Oximetry 97 O2 Sat by Pulse Oximetry 97 O2 Sat by Pulse Oximetry 97 O2 Sat by Pulse Oximetry 97 O2 Sat by Pulse Oximetry 99 O2 Sat by Pulse Oximetry 97 O2 Sat by Pulse Oximetry 97 O2 Sat by Pulse Oximetry 97 O2 Sat by Pulse Oximetry 97 O2 Sat by Pulse Oximetry 98 O2 Sat by Pulse Oximetry 98 O2 Sat by Pulse Oximetry 99 O2 Sat by Pulse Oximetry 95 General Limitations: No Limitations General Appearance: Alert and In No Apparent Distress Head Head Exam: Normal Inspection Eyes Eye exam: Normal Appearance ENT ENT Exam: Normal Exam Neck Neck Exam: Normal Inspection Chest Chest Inspection: Normal Inspection Respiratory Respiratory Exam: Normal Lung Sounds Bilat Respiratory Exam: Bilateral: Clear to Auscultation Cardiovascular Cardiovascular Exam: Regular Rate and Normal Rhythm Abdominal Exam Abdominal Exam: Normal Inspection, Normal Bowel Sounds and Soft Rectal Rectal Exam: Deferred Exam: Male: Deferred Extremities Extremities Exam: Normal Inspection Back Back Exam: Normal Inspection Neurologic Neurological Exam: Alert and Oriented X3 Psychiatric Psychiatric Exam: Normal Affect and Normal Mood Skin Skin Exam: Warm, Dry, Intact and Normal Color MDM Differential Diagnosis Differential Diagnosis Comment: DDx: Electrolyte disorder,Pneumonia,P E,AMI,Dehydration,Sepsis COURSE Treatment Treatment: Patient was placed in a monitored room IV access was initiated. Labs and tests were ordered. Chest x-ray revealed pneumonia, D-dimer is 0.61, lactic acid 0.6, COVID panel is negative, strep is negative, BUN is 21, creatinine is 1.09, WBC is 7.7, BNP is 236, ABG revealed Ph 7.45/PC02 43/P02 56/02sat 90.0 FI02 21%. Patient's EKG is 1 and 2 did not reveal any acute isc hemic changes/Trop#1 6.9/Trop #2 9.1. Discussed case with Dr. Grande. He has accepted the patient to his service. Patient received azithromycin 500 mg IV in the ED. [facility]OR Labs Reviewed 01/23/24 17:30 01/23/24 17:30 Laboratory: WBC 7.7 X10^3/uL (3.6-10.0) 01/23/24 17:30 RBC 4.08 X10^6/uL (4.7-6.0) L 01/23/24 17:30 Hgb 13.3 g/dL (13.5-18.0) L 01/23/24 17:30 Hct 39.3 % (42.0-54.0) L 01/23/24 17:30 MCV 96.2 fL (80.0-100.0) 01/23/24 17:30 MCH 32.5 pg (27.0-34.0) 01/23/24 17: MCHC 33.8 g/dL (33.0-35.0) 01/23/24 17: RDW 12.5 % (11.6-16.5) 01/23/24 17: Plt Count 138 X10^3/uL (150.0-450.0) L 01/23/24 17:30 Plt Count Comment Decreased (ADEQUATE) 01/23/24 17: MPV 9.1 fL (7.4-11.0) 01/23/24 17:30 Neut % (Auto) 90.5 % (42.0-75.0) H 01/23/24 17:30 Lymph % (Auto) 4.2 % (21.0-51.0) L 01/23/24 17:30 [place] % (Auto) 3.7 % (0.0-13.0) 01/23/24 17:30 Eos % (Auto) 1.3 % (0.9-2.9) 01/23/24 17:30 Baso % (Auto) 0.3 % (0.2-1.0) 01/23/24 17:30 Neut # (Auto) 7.0 x10^3/uL (2.2-4.8) H 01/23/24 17:30 Lymph # (Auto) 0.3 X10^3/uL (1.3-2.9) L 01/23/24 17:30 [place] # (Auto) 0.3 x10^3/uL (0.3-0.8) 01/23/24 17: Eos # (Auto) 0.1 x10^3/uL (0.0-0.2) 01/23/24 17:30 Baso # (Auto) 0.0 X10^3/uL (0.0-0.1) 01/23/24 17: Absolute Nucleated RBC 0.5 /100WBC 01/23/24 17:30 Total Counted 100 01/23/24 17:30 Neutrophils % (Manual) 87 % (39-76) H 01/23/24 17:30 Lymphocytes % (Manual) 7 % (13-43) L 01/23/24 17:30 Monocytes % (Manual) 4 % (4-9) 01/23/24 17:30 Eosinophils % (Manual) 2 % (0-6) 01/23/24 17:30 Plt Morphology Comment Normal (NORMAL) 01/23/24 17:30 RBC Morphology Normal (NORMAL) 01/23/24 17:30 D-Dimer 0.61 ug/ml (0.0-0.57) H 01/23/24 17:30 Sample Site Rra 01/23/24 17:44 ABG pH 7.450 (7.35-7.45) 01/23/24 17:44 ABG pCO2 43.0 mmHg (35.0-45.0) 01/23/24 17:44 ABG pO2 56.0 mmHg (80.0-100.0) L 01/23/24 17:44 ABG HCO3 29.9 mmol/L (22-26) H 01/23/24 17:44 ABG O2 Saturation 90.0 % (90-100) 01/23/24 17:44 ABG Base Excess 5.3 mmol/L (-2.0-2.0) H 01/23/24 17:44 Danielito Test Pos 01/23/24 17:44 A-a Gradient 40.0 mmHg 01/23/24 17:44 FiO2 21.0 01/23/24 17:44 Blood Gas Comments Pt sheryl well eb 01/23/24 17:44 Sodium 141 mmol/L (136-145) 01/23/24 17:30 Corrected Sodium TNP 01/23/24 17:30 Potassium 4.0 mmol/L (3.5-5.1) 01/23/24 17:30 Chloride 105 mmol/L (98-107) 01/23/24 17:30 Carbon Dioxide 33.0 mmol/L (21-32) H 01/23/24 17:30 BUN 21 mg/dL (7-18) H 01/23/24 17:30 Creatinine 1.09 mg/dL (0.70-1.30) 01/23/24 17:30 Est GFR (MDRD) Af Amer > 60 (>60) 01/23/24 17:30 Est GFR (MDRD) Non-Af > 60 (>60) 01/23/24 17:30 Glucose 94 mg/dL (65-99) 01/23/24 17:30 Lactic Acid 0.6 mmol/L (0.4-2.0) 01/23/24 17:30 Calcium 8.7 mg/dL (8.5-10.1) 01/23/24 17:30 Corrected Calcium TNP 01/23/24 17:30 Total Bilirubin 0.60 mg/dL (0.2-1.0) 01/23/24 17:30 AST 29 Units/L (15-37) 01/23/24 17:30 ALT 21 Units/L (12-78) 01/23/24 17:30 Alkaline Phosphatase 81 Units/L (46-116) 01/23/24 17:30 Creatine Kinase 92 Units/L (39-308) 01/23/24 20:30 Troponin I High Sens 9.1 ng/L (4.0-60.0) 01/23/24 20:30 B-Natriuretic Peptide 236 pg/mL (0-79) H 01/23/24 17:30 Total Protein 7.5 g/dL (6.4-8.2) 01/23/24 17:30 Albumin 3.8 g/dL (3.4-5.0) 01/23/24 17:30 Globulin 3.7 g/dL (2.5-4.5) 01/23/24 17:30 Albumin/Globulin Ratio 1.0 Ratio (1.1-2.1) L 01/23/24 17:30 SARS-CoV-2 (PCR) Negative (NEGATIVE) 01/23/24 17:24 Influenza Type A (PCR) Negative (NEGATIVE) 01/23/24 17:24 Influenza Type B (PCR) Negative (NEGATIVE) 01/23/24 17:24 RSV (PCR) Negative (NEGATIVE) 01/23/24 17:24 S. pyogenes (TEM-PCR) Not detected (NOT DETECT) 01/23/24 17:24 Opioid Opioid Risk Tool Age (Rajeev box if 16-45): No History of Preadolescent Sexual Abuse: No Total: 0 Total Score Risk Category: Low Risk Copyright: Tom KING predicting aberrant behaviors Discharge Plan Diagnosis Discharge Problem: Hypoxia, Pneumonia, Elevated d-dimer Discharge Plan Patient Disposition: 09 ADMITTED INPATIENT Condition: Stable Prescriptions: No Action celecoxib 200 mg capsule 200 mg PO BID PRN (Reason: pain) clopidogrel 75 mg tablet 75 mg PO QDAY albuterol sulfate 90 mcg/actuation HFA aerosol inhaler 1 puff INHALATION QDAY PRN budesonide-formoterol [Symbicort] 80-4.5 mcg/actuation HFA aerosol inhaler 2 puff INHALATION BID Vemlidy 25 mg tablet 25 mg PO QDAY baclofen 5 mg tablet 5 mg PO BID tamsulosin [Flomax] 0.4 mg Capsule 0.4 mg PO HS atorvastatin 80 mg tablet 80 mg PO QDAY midodrine 5 mg tablet 5 mg PO BID fludrocortisone 0.1 mg tablet 0.1 mg PO QDAY levalbuterol tartrate 45 mcg/actuation HFA aerosol inhaler 2 puff inhalation Q6HR Health Concerns: Post Hospitalization: new medications and changes needed to prevent readmission or further decline. Pt educated and given instructions on all concerns. Plan of Treatment: Continue with present treatment and follow up plan. Pt is to keep follow up appointment as instructed and take medications as ordered. Orders to Discharge Patient Discharge Orders: Transfer (Routine); Ordered 01/23/24 Ordered By: Maura Gregorio Follow ups/Referrals Follow ups/Referrals: Chan Irwin [Primary Care Provider] - 3 days Instructions Stand Alone Forms: Post Hospital Follow Up Care
--- NOTE | 2024-01-23 17:41 | EKG ---
Test Reason : Shortness of breath Blood Pressure : */* mmHG Vent. Rate : 83 BPM Atrial Rate : 83 BPM P-R Int : 198 ms QRS Dur : 130 ms QT Int : 410 ms P-R-T Axes : 59 -18 23 degrees QTc Int : 481 ms Normal sinus rhythm Right bundle branch block Abnormal ECG When compared with ECG of 21-APR-2023 10:10, Vent. rate has increased BY 30 BPM T wave inversion now evident in Anterior leads QT has lengthened Confirmed by Logan Jaramillo MD ([id number]) on 01/25/2024 6:59:18 AM Referred By: Confirmed By: Logan Jaramillo MD
[2024-01-23 17:46] LABS: ABG BASE EXCESS 5.3 mmol/L (-2.0-2.0); ABG HCO3 29.9 mmol/L (22-26)
[2024-01-23 17:47] LABS: ABG ALLEN TEST POS
[2024-01-23 17:56] LABS: BASOPHILS % (AUTO) 0.3 % (0.2-1.0); EOSINOPHILS # (AUTO) 0.1 x10^3/uL (0.0-0.2); EOSINOPHILS % (AUTO) 1.3 % (0.9-2.9); HEMATOCRIT 39.3 % (42.0-54.0); HEMOGLOBIN 13.3 g/dL (13.5-18.0); LYMPHOCYTES # (AUTO) 0.3 X10^3/uL (1.3-2.9); LYMPHOCYTES % (AUTO) 4.2 % (21.0-51.0); MEAN CORPUSCULAR HEMOGLOBIN 32.5 pg (27.0-34.0); MEAN CORPUSCULAR HGB CONC 33.8 g/dL (33.0-35.0); MEAN CORPUSCULAR VOLUME 96.2 fL (80.0-100.0); MEAN PLATELET VOLUME 9.1 fL (7.4-11.0); MONOCYTES # (AUTO) 0.3 x10^3/uL (0.3-0.8); MONOCYTES % (AUTO) 3.7 % (0.0-13.0); NEUTROPHILS % (AUTO) 90.5 % (42.0-75.0); PLATELET COUNT 138 X10^3/uL (150.0-450.0); RED BLOOD COUNT 4.08 X10^6/uL (4.7-6.0); RED CELL DISTRIBUTION WIDTH 12.5 % (11.6-16.5); WHITE BLOOD COUNT 7.7 X10^3/uL (3.6-10.0)
[2024-01-23 18:03] LABS: ALANINE AMINOTRANSFERASE 21 Units/L (12-78); ALBUMIN 3.8 g/dL (3.4-5.0); ALKALINE PHOSPHATASE 81 Units/L (46-116); ASPARTATE AMINO TRANSFERASE 29 Units/L (15-37); BLOOD UREA NITROGEN 21 mg/dL (7-18); CALCIUM 8.7 mg/dL (8.5-10.1); CHLORIDE 105 mmol/L (98-107); CREATININE 1.09 mg/dL (0.70-1.30); GLUCOSE 94 mg/dL (65-99); SODIUM 141 mmol/L (136-145); TOTAL PROTEIN 7.5 g/dL (6.4-8.2); eGFR NON BLACK RACES > 60 (>60)
[2024-01-23 18:19] LABS: PLATELET MORPHOLOGY COMMENT NORMAL (NORMAL)
[2024-01-23 18:23] LABS: STREP A BY PCR NOT DETECTED (NOT DETECT)
[2024-01-23] MEDS: NS 500 ML IV 500 ML IV ONE (18:31)
--- NOTE | 2024-01-23 20:57 | EKG ---
Test Reason : SHAKING Blood Pressure : */* mmHG Vent. Rate : 71 BPM Atrial Rate : 71 BPM P-R Int : 200 ms QRS Dur : 136 ms QT Int : 420 ms P-R-T Axes : 53 -10 14 degrees QTc Int : 456 ms Normal sinus rhythm Right bundle branch block Abnormal ECG When compared with ECG of 23-JAN-2024 17:38, (Unconfirmed) No significant change was found Confirmed by Logan Jaramillo MD ([id number]) on 01/25/2024 6:58:57 AM Referred By: Confirmed By: Logan Jaramillo MD
[2024-01-23] MEDS: SOLU-Medrol 125 MG VIAL IVP ONE (22:10)
--- NOTE | 2024-01-23 22:50 | RAD ---
EXAM:CHEST, 1 VIEWHISTORY:fever,chills,lk for infn,chf;COMPARISON:04/21/2023.TECHNIQUE: .br.br.br.br There is atherosclerosis in the aortic arch. The pulmonary blood flow is congested. Upper lungs are clear. The left base is clear. There is opacity in the medial right base which could be pneumonia. There is no right pleural effusion.IMPRESSION:Right medial base opacity worrisome for pneumonia.THIS IS AN ELECTRONICALLY VERIFIED FINAL REPORT01/23/2024 10:47 PM - Electronically signed by Nitin Medina MD
[2024-01-24] MEDS: DUONEB 0.5 MG/3 MG (3 mL) NEB SCH (00:15)
[2024-01-24 00:53] VITALS: BMI 23.7
[2024-01-24] MEDS ORDERED: VIBRAMYCIN IV ONE (01:05)
[2024-01-24] MEDS: ZITHROMAX INJ 500 MG VIAL 500 MG in NS 250 ML IV 250 ML IV SCH (01:32)
[2024-01-24] MEDS: VIBRAMYCIN 100 MG in D5W 250 ML IV 250 ML IV SCH (01:33)
[2024-01-24] MEDS: FORTAZ or TAZICEF VIAL INJ 1 G in NS 100 ML IV 100 ML IV SCH (03:37)
[2024-01-24 06:45] LABS: BASOPHILS % (AUTO) 0.1 % (0.2-1.0); HEMATOCRIT 36.5 % (42.0-54.0); HEMOGLOBIN 12.3 g/dL (13.5-18.0); LYMPHOCYTES # (AUTO) 0.4 X10^3/uL (1.3-2.9); LYMPHOCYTES % (AUTO) 2.5 % (21.0-51.0); MEAN CORPUSCULAR HEMOGLOBIN 32.4 pg (27.0-34.0); MEAN CORPUSCULAR HGB CONC 33.8 g/dL (33.0-35.0); MEAN PLATELET VOLUME 9.4 fL (7.4-11.0); MONOCYTES # (AUTO) 0.2 x10^3/uL (0.3-0.8); MONOCYTES % (AUTO) 1.1 % (0.0-13.0); NEUTROPHILS # (AUTO) 13.8 x10^3/uL (2.2-4.8); NEUTROPHILS % (AUTO) 96.3 % (42.0-75.0); PLATELET COUNT 122 X10^3/uL (150.0-450.0); RED CELL DISTRIBUTION WIDTH 12.6 % (11.6-16.5); WHITE BLOOD COUNT 14.3 X10^3/uL (3.6-10.0)
[2024-01-24 06:59] LABS: ALANINE AMINOTRANSFERASE 15 Units/L (12-78); ALBUMIN 3.1 g/dL (3.4-5.0); ALKALINE PHOSPHATASE 57 Units/L (46-116); ASPARTATE AMINO TRANSFERASE 23 Units/L (15-37); BLOOD UREA NITROGEN 19 mg/dL (7-18); CALCIUM 8.4 mg/dL (8.5-10.1); CHLORIDE 105 mmol/L (98-107); COR CA(FOR HYPOALB) 9.1 mg/dL (8.5-10.1); COR NA(FOR HYPERGLY) 140 mmol/L (136-145); CREATININE 0.96 mg/dL (0.70-1.30); GLUCOSE 152 mg/dL (65-99); POTASSIUM 3.7 mmol/L (3.5-5.1); SODIUM 139 mmol/L (136-145); TOTAL PROTEIN 6.6 g/dL (6.4-8.2); eGFR NON BLACK RACES > 60 (>60)
[2024-01-24 07:17] LABS: PLATELET MORPHOLOGY COMMENT NORMAL (NORMAL)
[2024-01-24] MEDS ORDERED: CONSULT PHARMACY - POTASSIUM & MAGNESIUM XX SCH ×2 (08:00)
[2024-01-24] MEDS ORDERED: PULMICORT NEB TX 0.5 MG NEB SCH (09:00)
[2024-01-24] MEDS ORDERED: CELEBREX PO PRN (09:00)
[2024-01-24] MEDS ORDERED: PROVENTIL NEB TX 0.083% 2.5MG/ 3ML NEB SCH (09:00)
[2024-01-24] MEDS: TENOFOVIR ALAFENAMIDE 25 MG PO SCH (09:03)
[2024-01-24] MEDS: K-DUR TAB 20 MEQ PO SCH (09:04)
[2024-01-24] MEDS: LIPITOR TAB 80 MG PO SCH (09:04)
[2024-01-24] MEDS: PROAMATINE PO SCH (09:05)
[2024-01-24] MEDS: SOLU-Medrol 125 MG VIAL IVP SCH ×2 (09:05→19:28)
[2024-01-24] MEDS: MAG-OX TAB PO SCH (09:05)
[2024-01-24] MEDS: PLAVIX PO SCH (09:05)
[2024-01-24] MEDS: FLORINEF PO SCH (09:05)
[2024-01-24] MEDS: LIORESAL PO SCH (09:05)
[2024-01-24] MEDS: PULMICORT NEB TX 0.5 MG NEB SCH (09:59)
[2024-01-24] MEDS: K-RIDER 10 MEQ/100 ML WATER 10 MEQ/100 ML BAG IV SCH (10:25)
[2024-01-24] MEDS: NS 250 ML IV 250 ML IV ONE (10:33)
[2024-01-24] MEDS: PROTONIX INJ 40 MG VIAL IVP SCH (11:34)
[2024-01-24] MEDS: MAGNESIUM SULFATE 1 GRAM/100 mL PREMIX 1 G/100 ML BAG IV ONE (12:38)
[2024-01-24] MEDS: CONSULT PHARMACY - POTASSIUM & MAGNESIUM XX SCH (19:27)
--- NOTE | 2024-01-24 19:54 | DR.H&P ---
H&P History & Physical for Day of: H&P Date: 01/24/24 History of Present Illness History of Present Illness: The patient is a pleasant 78-year-old white male. He has had stabbing chest pain, nausea, chills, and sobbing that began today. 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 The patient had been feeling good before today. He has a h/o tobacco use that began at age 10-10 until age 38. H/o throat cancer was diagnosed in 2007 with chemo and radiation therapy; the radiation therapy burned out his epiglottis, and the patient taught himself to swallow and has never had a G-tube. The patient and I feel like he probably recently aspirated some food and he is developing aspiration pneumonia now. He does have a h/o thoracic aortic Aneurysm and carotid stenosis. 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 The patient denies hemoptysis, palpitations, syncope, back pain, and extremity weakness. This morning, the patient is in good spirits; however, he does have some right anterior rhonchi. The chest x-ray showed a right opacity consistent with pneumonia. He is currently receiving IV azithromycin and Fortaz. We will continue this on him today and repeat a chest x-ray tomorrow. If it is clearing and he is feeling better, we might consider discharging him home, but if he is still not feeling well, we probably will keep him one more day. Past Medical History Past Medical History: Anemia, Arthritis, COPD, Coronary Artery Disease, Dyslipidemia and Liver Disease Additional Medical History: Cataracts, Hepatitis B, Hx of hernia, Back Pain, Previous Blood Transfusion, Throat Cancer w/ Radiation, Skin Cancer Past Surgical History Surgical History: Angioplasty/Stents, Cholecystectomy and Ortho Surgery Additional Surgical History: Skin Cancer removed, Cataracts removed Family History Family Medical History: Cancer and Coronary Artery Disease Social History Does patient currently use any type of tobacco product: No Have you used tobacco products in the last 12 months: No Type of Tobacco Use: None Does any household member use tobacco: No Alcohol Use: None Drug Use: None Medications Home Medications: Home Medications Medication Instructions Recorded Confirmed Type albuterol sulfate 90 mcg/actuation 1 puff inhalation QDAY PRN 04/21/23 01/24/24 History aerosol inhaler budesonide-formoterol HFA 80 2 puff inhalation BID 04/21/23 01/24/24 History mcg-4.5 mcg/actuation aerosol inhaler (Symbicort) celecoxib 200 mg capsule 200 mg PO BID PRN pain 04/21/23 01/23/24 History clopidogrel 75 mg tablet 75 mg PO QDAY 04/21/23 01/23/24 History tenofovir alafenamide 25 mg tablet 25 mg PO QDAY 04/21/23 01/23/24 History (Vemlidy) atorvastatin 80 mg tablet 80 mg PO QDAY 01/23/24 01/23/24 History fludrocortisone 0.1 mg tablet 0.1 mg PO QDAY 01/23/24 01/23/24 History levalbuterol tartrate 45 2 puff inhalation Q6HR 01/23/24 01/23/24 History mcg/actuation aerosol inhaler midodrine 5 mg tablet 5 mg PO BID 01/23/24 01/23/24 History silodosin 4 mg capsule 4 mg PO DAILY 01/24/24 01/24/24 History Allergies Allergies Allergy/AdvReac Type Severity Reaction Status Date / Time aspirin Allergy Verified 09/06/17 02:50 Penicillins Allergy Verified 01/23/24 17:16 shrimp Allergy Verified 09/06/17 02:50 Labs 01/24/24 05:37 01/24/24 05:37 Labs: Laboratory WBC 14.3 X10^3/uL (3.6-10.0) H 01/24/24 05:37 RBC 3.80 X10^6/uL (4.7-6.0) L 01/24/24 05:37 Hgb 12.3 g/dL (13.5-18.0) L 01/24/24 05:37 Hct 36.5 % (42.0-54.0) L 01/24/24 05:37 MCV 96.0 fL (80.0-100.0) 01/24/24 05:37 MCH 32.4 pg (27.0-34.0) 01/24/24 05:37 MCHC 33.8 g/dL (33.0-35.0) 01/24/24 05:37 RDW 12.6 % (11.6-16.5) 01/24/24 05:37 Plt Count 122 X10^3/uL (150.0-450.0) L 01/24/24 05:37 Plt Count Comment Decreased (ADEQUATE) 01/24/24 05:37 MPV 9.4 fL (7.4-11.0) 01/24/24 05:37 Neut % (Auto) 96.3 % (42.0-75.0) H 01/24/24 05:37 Lymph % (Auto) 2.5 % (21.0-51.0) L 01/24/24 05:37 [place] % (Auto) 1.1 % (0.0-13.0) 01/24/24 05:37 Eos % (Auto) 0.0 % (0.9-2.9) L 01/24/24 05:37 Baso % (Auto) 0.1 % (0.2-1.0) L 01/24/24 05:37 Neut # (Auto) 13.8 x10^3/uL (2.2-4.8) H 01/24/24 05:37 Lymph # (Auto) 0.4 X10^3/uL (1.3-2.9) L 01/24/24 05:37 [place] # (Auto) 0.2 x10^3/uL (0.3-0.8) L 01/24/24 05:37 Eos # (Auto) 0.0 x10^3/uL (0.0-0.2) 01/24/24 05:37 Baso # (Auto) 0.0 X10^3/uL (0.0-0.1) 01/24/24 05:37 Absolute Nucleated RBC 0.0 /100WBC 01/24/24 05:37 Total Counted 100 01/24/24 05:37 Neutrophils % (Manual) 98 % (39-76) H 01/24/24 05:37 Lymphocytes % (Manual) 1 % (13-43) L 01/24/24 05:37 Monocytes % (Manual) 1 % (4-9) L 01/24/24 05:37 Eosinophils % (Manual) 2 % (0-6) 01/23/24 17:30 Plt Morphology Comment Normal (NORMAL) 01/24/24 05:37 RBC Morphology Normal (NORMAL) 01/24/24 05:37 D-Dimer 0.61 ug/ml (0.0-0.57) H 01/23/24 17:30 Sample Site Rra 01/23/24 17:44 ABG pH 7.450 (7.35-7.45) 01/23/24 17:44 ABG pCO2 43.0 mmHg (35.0-45.0) 01/23/24 17:44 ABG pO2 56.0 mmHg (80.0-100.0) L 01/23/24 17:44 ABG HCO3 29.9 mmol/L (22-26) H 01/23/24 17:44 ABG O2 Saturation 90.0 % (90-100) 01/23/24 17:44 ABG Base Excess 5.3 mmol/L (-2.0-2.0) H 01/23/24 17:44 Danielito Test Pos 01/23/24 17:44 A-a Gradient 40.0 mmHg 01/23/24 17:44 FiO2 21.0 01/23/24 17:44 Blood Gas Comments Pt sheryl well eb 01/23/24 17:44 Sodium 139 mmol/L (136-145) 01/24/24 05:37 Corrected Sodium 140 mmol/L (136-145) 01/24/24 05:37 Potassium 3.7 mmol/L (3.5-5.1) 01/24/24 05:37 Chloride 105 mmol/L (98-107) 01/24/24 05:37 Carbon Dioxide 29.0 mmol/L (21-32) 01/24/24 05:37 BUN 19 mg/dL (7-18) H 01/24/24 05:37 Creatinine 0.96 mg/dL (0.70-1.30) 01/24/24 05:37 Est GFR (MDRD) Af Amer > 60 (>60) 01/24/24 05:37 Est GFR (MDRD) Non-Af > 60 (>60) 01/24/24 05:37 Glucose 152 mg/dL (65-99) H 01/24/24 05:37 Lactic Acid 0.6 mmol/L (0.4-2.0) 01/23/24 17:30 Calcium 8.4 mg/dL (8.5-10.1) L 01/24/24 05:37 Corrected Calcium 9.1 mg/dL (8.5-10.1) 01/24/24 05:37 Magnesium 1.9 mg/dL (2.0-2.9) L 01/24/24 05:37 Total Bilirubin 1.00 mg/dL (0.2-1.0) 01/24/24 05:37 AST 23 Units/L (15-37) 01/24/24 05:37 ALT 15 Units/L (12-78) 01/24/24 05:37 Alkaline Phosphatase 57 Units/L (46-116) 01/24/24 05:37 Creatine Kinase 92 Units/L (39-308) 01/23/24 20:30 Troponin I High Sens 9.1 ng/L (4.0-60.0) 01/23/24 20:30 B-Natriuretic Peptide 236 pg/mL (0-79) H 01/23/24 17:30 Total Protein 6.6 g/dL (6.4-8.2) 01/24/24 05:37 Albumin 3.1 g/dL (3.4-5.0) L 01/24/24 05:37 Globulin 3.5 g/dL (2.5-4.5) 01/24/24 05:37 Albumin/Globulin Ratio 0.9 Ratio (1.1-2.1) L 01/24/24 05:37 SARS-CoV-2 (PCR) Negative (NEGATIVE) 01/23/24 17:24 Influenza Type A (PCR) Negative (NEGATIVE) 01/23/24 17:24 Influenza Type B (PCR) Negative (NEGATIVE) 01/23/24 17:24 RSV (PCR) Negative (NEGATIVE) 01/23/24 17:24 S. pyogenes (TEM-PCR) Not detected (NOT DETECT) 01/23/24 17:24 Review of Systems Constitutional: Weakness and Malaise Eyes: No Symptoms Reported ENT: No Symptoms Reported Respiratory: Cough, Shortness of Breath, SOB with Excertion and Sputum Cardiovascular: Chest Pain Gastrointestinal: No Symptoms Reported Genitourinary: No Symptoms Reported Musculoskeletal: No Symptoms Reported Skin: No Symptoms Reported Neurological: No Symptoms Reported Physical Exam Vital Signs: Vital Signs Temperature 98.1 F Temperature 97.7 F Pulse Rate [Right] 77 Pulse Rate [Right] 76 Respiratory Rate 20 Respiratory Rate 20 Blood Pressure [Right Arm] 99/57 Blood Pressure [Right Arm] 100/56 O2 Sat by Pulse Oximetry 97 O2 Sat by Pulse Oximetry 95 Oriented: Normal Eyes: Normal Ear: Normal Nose: Normal Throat: Red Respiratory: RML Rhonchi and RLL Rhonchi Cardiovascular: Normal : Normal Auscultation: Bowel Sounds: Normal Palpation: Normal Tenderness: Normal Skin: Normal Musculoskeletal: Normal Psychiatric: Normal Mood Description: Calm Affect: Normal Speech Pattern: Clear and Appropriate Assessment/Plan (1) Chest pain, rule out acute myocardial infarction: Status: Acute Plan: Troponins were checked x 2 and they were both normal. We stopped after that as there were no need to continue further checking. (2) Hypoxia: Status: Acute Plan: O2 sat supplementation via nasal cannula. (3) Pneumonia: Status: Acute Plan: IV azithromycin and Fortaz for suspected aspiration pneumonia. Follow-up sputum culture when available. (4) Elevated d-dimer: Status: Acute Plan: I discussed ordering a VQ scan with the patient as he may not want to go and do that I seriously doubt that he has a PE. He did only have a slight elevation in the D-dimer number and he does have underlying pneumonia which can cause an elevation in D-dimer because it is an inflammatory process. (5) Thoracic aortic aneurysm (TAA): Status: Acute (6) Carotid stenosis: Status: Acute (7) History of throat cancer: Status: Chronic Plan: Pured food to the consistency of honey. (8) Hepatitis B: Qualifiers: Viral hepatitis chronicity: chronic Hepatic coma status: without hepatic coma Hepatitis delta agent presence: without delta-agent Qualified Code(s): B18.1 - Chronic viral hepatitis B without delta-agent Status: Chronic Review H&P Reviewed: Yes Patient was examined?: Yes
[2024-01-24] MEDS: FLOMAX PO SCH (21:12)
[2024-01-25 06:21] LABS: BASOPHILS % (AUTO) 0.1 % (0.2-1.0); HEMATOCRIT 35.1 % (42.0-54.0); HEMOGLOBIN 11.8 g/dL (13.5-18.0); LYMPHOCYTES # (AUTO) 0.3 X10^3/uL (1.3-2.9); MEAN CORPUSCULAR HEMOGLOBIN 32.7 pg (27.0-34.0); MEAN CORPUSCULAR HGB CONC 33.8 g/dL (33.0-35.0); MEAN CORPUSCULAR VOLUME 96.8 fL (80.0-100.0); MEAN PLATELET VOLUME 9.5 fL (7.4-11.0); MONOCYTES # (AUTO) 0.3 x10^3/uL (0.3-0.8); NEUTROPHILS # (AUTO) 15.5 x10^3/uL (2.2-4.8); NEUTROPHILS % (AUTO) 95.9 % (42.0-75.0); PLATELET COUNT 133 X10^3/uL (150.0-450.0); RED BLOOD COUNT 3.62 X10^6/uL (4.7-6.0); RED CELL DISTRIBUTION WIDTH 12.7 % (11.6-16.5); WHITE BLOOD COUNT 16.2 X10^3/uL (3.6-10.0)
[2024-01-25 06:23] LABS: BLOOD UREA NITROGEN 22 mg/dL (7-18); CARBON DIOXIDE 26.1 mmol/L (21-32); CHLORIDE 104 mmol/L (98-107); COR NA(FOR HYPERGLY) 141 mmol/L (136-145); CREATININE 1.12 mg/dL (0.70-1.30); GLUCOSE 140 mg/dL (65-99); POTASSIUM 3.9 mmol/L (3.5-5.1); SODIUM 140 mmol/L (136-145); eGFR NON BLACK RACES > 60 (>60)
[2024-01-25 06:28] LABS: MAGNESIUM 2.1 mg/dL (2.0-2.9)
[2024-01-25 06:31] LABS: BAND NEUTROPHILS % 10 % (0-10); PLATELET MORPHOLOGY COMMENT NORMAL (NORMAL)
--- NOTE | 2024-01-25 08:06 | RAD ---
EXAM:AP chestHISTORY:Hypoxia fever SOBCOMPARISON:01/23/2024FINDINGS:The heart is mildly enlarged. There are increased linear parenchymal densities in the right base although this infiltrate has improved. The left lung remains clear. Pleural spaces are well-defined.IMPRESSION:Improving right lower lobe infiltrate/atelectasis.THIS IS AN ELECTRONICALLY VERIFIED FINAL REPORT01/25/2024 8:03 AM - Electronically signed by Jt Camacho MD
[2024-01-25] MEDS ORDERED: VIBRAMYCIN IV ONE ×3 (09:40→20:16)
[2024-01-25] MEDS: LOVENOX INJ 40 MG SYR SC SCH (09:58)
--- NOTE | 2024-01-25 17:15 | PCM.PROG ---
Progress Note Progress Note for Day of Date of Exam: 01/25/24 Subjective Subjective: The patient reports feeling about the same today. His white blood cell count went up from 14,300 to 16,200 today. His BMP is normal. His chest x- ray shows that his right lobe infiltrate is improving. He is still receiving IV doxycycline and Fortaz. The patient is afebrile, and his vital signs are stable. Given that his white count has increased, we will continue him on IV antibiotics at this time. We plan on rechecking routine labs and another chest x-ray tomorrow morning. Past Medical Family Social History Allergies: Allergies aspirin Allergy (Verified 09/06/17 02:50) Penicillins Allergy (Verified 01/23/24 17:16) shrimp Allergy (Verified 09/06/17 02:50) Review of Systems ROS: No change since H&P Vital Signs and I&O's Vital Signs: Vital Signs Temperature 97.4 F Pulse Rate [Right] 86 Respiratory Rate 18 Blood Pressure [Right Arm] 128/71 Intake and Output: Intake & Output 01/23/24 01/24/24 01/25/24 01/26/24 11:59 11:59 11:59 11:59 Intake Total 810 / 810 2852 / 2852 848 / 848 Output Total 0 / 0 Balance 810 / 810 2852 / 2852 848 / 848 Physical Exam Oriented: Normal Eyes: Normal Ear: Normal Nose: Normal Throat: Red Respiratory: Right and Rhonchi Cardiovascular: Normal : Normal Auscultation: Bowel Sounds: Normal Tenderness: Normal Skin: Normal Musculoskeletal: Normal Psychiatric: Normal Mood Description: Calm Affect: Normal Speech Pattern: Clear and Appropriate Laboratory and Diagnostics 01/25/24 05:38 01/25/24 05:38 Labs: 01/23/24 17:30 Blood Blood Culture - Preliminary 01/23/24 17:25 Blood Blood Culture - Preliminary Laboratory WBC 16.2 X10^3/uL (3.6-10.0) H 01/25/24 05:38 RBC 3.62 X10^6/uL (4.7-6.0) L 01/25/24 05:38 Hgb 11.8 g/dL (13.5-18.0) L 01/25/24 05:38 Hct 35.1 % (42.0-54.0) L 01/25/24 05:38 MCV 96.8 fL (80.0-100.0) 01/25/24 05:38 MCH 32.7 pg (27.0-34.0) 01/25/24 05:38 MCHC 33.8 g/dL (33.0-35.0) 01/25/24 05:38 RDW 12.7 % (11.6-16.5) 01/25/24 05:38 Plt Count 133 X10^3/uL (150.0-450.0) L 01/25/24 05:38 Plt Count Comment Decreased (ADEQUATE) 01/25/24 05:38 MPV 9.5 fL (7.4-11.0) 01/25/24 05:38 Neut % (Auto) 95.9 % (42.0-75.0) H 01/25/24 05:38 Lymph % (Auto) 2.0 % (21.0-51.0) L 01/25/24 05:38 [place] % (Auto) 2.0 % (0.0-13.0) 01/25/24 05:38 Eos % (Auto) 0.0 % (0.9-2.9) L 01/25/24 05:38 Baso % (Auto) 0.1 % (0.2-1.0) L 01/25/24 05:38 Neut # (Auto) 15.5 x10^3/uL (2.2-4.8) H 01/25/24 05:38 Lymph # (Auto) 0.3 X10^3/uL (1.3-2.9) L 01/25/24 05:38 [place] # (Auto) 0.3 x10^3/uL (0.3-0.8) 01/25/24 05:38 Eos # (Auto) 0.0 x10^3/uL (0.0-0.2) 01/25/24 05:38 Baso # (Auto) 0.0 X10^3/uL (0.0-0.1) 01/25/24 05:38 Absolute Nucleated RBC 0.0 /100WBC 01/25/24 05:38 Total Counted 100 01/25/24 05:38 Neutrophils % (Manual) 87 % (39-76) H 01/25/24 05:38 Band Neutrophils % 10 % (0-10) 01/25/24 05:38 Lymphocytes % (Manual) 1 % (13-43) L 01/25/24 05:38 Monocytes % (Manual) 2 % (4-9) L 01/25/24 05:38 Eosinophils % (Manual) 2 % (0-6) 01/23/24 17:30 Plt Morphology Comment Normal (NORMAL) 01/25/24 05:38 RBC Morphology Normal (NORMAL) 01/25/24 05:38 D-Dimer 0.61 ug/ml (0.0-0.57) H 01/23/24 17:30 Sample Site Rra 01/23/24 17:44 ABG pH 7.450 (7.35-7.45) 01/23/24 17:44 ABG pCO2 43.0 mmHg (35.0-45.0) 01/23/24 17:44 ABG pO2 56.0 mmHg (80.0-100.0) L 01/23/24 17:44 ABG HCO3 29.9 mmol/L (22-26) H 01/23/24 17:44 ABG O2 Saturation 90.0 % (90-100) 01/23/24 17:44 ABG Base Excess 5.3 mmol/L (-2.0-2.0) H 01/23/24 17:44 Danielito Test Pos 01/23/24 17:44 A-a Gradient 40.0 mmHg 01/23/24 17:44 FiO2 21.0 01/23/24 17:44 Blood Gas Comments Pt sheryl well eb 01/23/24 17:44 Sodium 140 mmol/L (136-145) 01/25/24 05:38 Corrected Sodium 141 mmol/L (136-145) 01/25/24 05:38 Potassium 3.9 mmol/L (3.5-5.1) 01/25/24 05:38 Chloride 104 mmol/L (98-107) 01/25/24 05:38 Carbon Dioxide 26.1 mmol/L (21-32) 01/25/24 05:38 BUN 22 mg/dL (7-18) H 01/25/24 05:38 Creatinine 1.12 mg/dL (0.70-1.30) 01/25/24 05:38 Est GFR (MDRD) Af Amer > 60 (>60) 01/25/24 05:38 Est GFR (MDRD) Non-Af > 60 (>60) 01/25/24 05:38 Glucose 140 mg/dL (65-99) H 01/25/24 05:38 Lactic Acid 0.6 mmol/L (0.4-2.0) 01/23/24 17:30 Calcium 9.0 mg/dL (8.5-10.1) 01/25/24 05:38 Corrected Calcium 9.1 mg/dL (8.5-10.1) 01/24/24 05:37 Magnesium 2.1 mg/dL (2.0-2.9) 01/25/24 05:38 Total Bilirubin 1.00 mg/dL (0.2-1.0) 01/24/24 05:37 AST 23 Units/L (15-37) 01/24/24 05:37 ALT 15 Units/L (12-78) 01/24/24 05:37 Alkaline Phosphatase 57 Units/L (46-116) 01/24/24 05:37 Creatine Kinase 92 Units/L (39-308) 01/23/24 20:30 Troponin I High Sens 9.1 ng/L (4.0-60.0) 01/23/24 20:30 B-Natriuretic Peptide 236 pg/mL (0-79) H 01/23/24 17:30 Total Protein 6.6 g/dL (6.4-8.2) 01/24/24 05:37 Albumin 3.1 g/dL (3.4-5.0) L 01/24/24 05:37 Globulin 3.5 g/dL (2.5-4.5) 01/24/24 05:37 Albumin/Globulin Ratio 0.9 Ratio (1.1-2.1) L 01/24/24 05:37 SARS-CoV-2 (PCR) Negative (NEGATIVE) 01/23/24 17:24 Influenza Type A (PCR) Negative (NEGATIVE) 01/23/24 17:24 Influenza Type B (PCR) Negative (NEGATIVE) 01/23/24 17:24 RSV (PCR) Negative (NEGATIVE) 01/23/24 17:24 S. pyogenes (TEM-PCR) Not detected (NOT DETECT) 01/23/24 17:24 Radiology Reviewed: Yes Plan (1) Pneumonia: Status: Acute Qualifiers: Pneumonia type: aspiration pneumonia Aspiration pneumonia type: unspecified Laterality: right Lung location: lower lobe of lung Qualified Code(s): J69.0 - Pneumonitis due to inhalation of food and vomit Narrative Support Text: Blood cultures x 2 and sputum cultures are still pending at this time. Plan: IV doxycycline and Fortaz for suspected aspiration pneumonia. Follow-up sputum culture when available. Discontinue Zithromax. (2) Hypoxia: Status: Acute Narrative Support Text: Improved. Plan: O2 sat supplementation via nasal cannula. (3) Chest pain, rule out acute myocardial infarction: Status: Acute Narrative Support Text: Chest pain resolved. Plan: Troponins were checked x 2 and they were both normal. We stopped after that as there were no need to continue further checking. (4) Elevated d-dimer: Status: Acute Plan: I discussed ordering a VQ scan with the patient as he may not want to go and do that I seriously doubt that he has a PE. He did only have a slight elevation in the D-dimer number and he does have underlying pneumonia which can cause an elevation in D-dimer because it is an inflammatory process. (5) Thoracic aortic aneurysm (TAA): Status: Chronic (6) Carotid stenosis: Status: Chronic (7) History of throat cancer: Status: Chronic Plan: Pured food to the consistency of honey. (8) Hepatitis B: Status: Chronic Qualifiers: Viral hepatitis chronicity: chronic Hepatic coma status: without hepatic coma Hepatitis delta agent presence: without delta-agent Qualified Cod e(s): B18.1 - Chronic viral hepatitis B without delta-agent
[2024-01-26 06:24] LABS: BASOPHILS % (AUTO) 0.1 % (0.2-1.0); HEMATOCRIT 34.9 % (42.0-54.0); HEMOGLOBIN 11.7 g/dL (13.5-18.0); LYMPHOCYTES # (AUTO) 0.4 X10^3/uL (1.3-2.9); LYMPHOCYTES % (AUTO) 3.1 % (21.0-51.0); MEAN CORPUSCULAR HEMOGLOBIN 32.5 pg (27.0-34.0); MEAN CORPUSCULAR HGB CONC 33.5 g/dL (33.0-35.0); MEAN CORPUSCULAR VOLUME 97.1 fL (80.0-100.0); MEAN PLATELET VOLUME 9.2 fL (7.4-11.0); MONOCYTES # (AUTO) 0.4 x10^3/uL (0.3-0.8); MONOCYTES % (AUTO) 2.9 % (0.0-13.0); NEUTROPHILS # (AUTO) 11.8 x10^3/uL (2.2-4.8); NEUTROPHILS % (AUTO) 93.9 % (42.0-75.0); PLATELET COUNT 122 X10^3/uL (150.0-450.0); RED BLOOD COUNT 3.59 X10^6/uL (4.7-6.0); RED CELL DISTRIBUTION WIDTH 12.8 % (11.6-16.5); WHITE BLOOD COUNT 12.6 X10^3/uL (3.6-10.0)
[2024-01-26 06:35] LABS: BLOOD UREA NITROGEN 21 mg/dL (7-18); CALCIUM 8.8 mg/dL (8.5-10.1); CARBON DIOXIDE 26.9 mmol/L (21-32); CHLORIDE 106 mmol/L (98-107); COR NA(FOR HYPERGLY) 144 mmol/L (136-145); CREATININE 1.11 mg/dL (0.70-1.30); GLUCOSE 168 mg/dL (65-99); POTASSIUM 4.1 mmol/L (3.5-5.1); SODIUM 142 mmol/L (136-145); eGFR NON BLACK RACES > 60 (>60)
--- NOTE | 2024-01-26 06:51 | RAD ---
EXAM: Portable chest HISTORY: Shortness of breath COMPARISON: 01/25/2024 FINDINGS: Heart is upper limits normal in size. [place] are normal. Aorta is calcified. No definite congestiv e heart failure or acute infiltrates identified. There is a focus of subsegmental atelectasis in the left lung base. No pleural effusions are identified. IMPRESSION: Right lung base now clear Subsegmental atelectasis left lung base No definite acute infiltrates THIS IS AN ELECTRONICALLY VERIFIED FINAL REPORT 01/26/2024 6:48 AM - Electronically signed by Leif Bravo MD
[2024-01-26 07:04] LABS: BAND NEUTROPHILS % 6 % (0-10)
[2024-01-26 07:05] LABS: PLATELET MORPHOLOGY COMMENT NORMAL (NORMAL)
[2024-01-26 07:08] LABS: MAGNESIUM 1.9 mg/dL (2.0-2.9)
--- NOTE | 2024-01-26 12:31 | PCM.PROG ---
Progress Note Progress Note for Day of Date of Exam: 01/26/24 Subjective Subjective: The patient reports feeling better today. His chest x-ray shows that his right lung infiltrate has resolved and is clearing out. His white blood cell count is coming down from 16,000-12,000 this morning. Will continue his current treatment and plan on discharging him tomorrow if he continues to get better. Past Medical Family Social History Allergies: Allergies aspirin Allergy (Verified 09/06/17 02:50) Penicillins Allergy (Verified 01/23/24 17:16) shrimp Allergy (Verified 09/06/17 02:50) Review of Systems ROS: No change since H&P Vital Signs and I&O's Vital Signs: Vital Signs Temperature 98.4 F Pulse Rate [Right] 89 Pulse Rate 72 Respiratory Rate 20 Blood Pressure [Right Arm] 150/75 O2 Sat by Pulse Oximetry 94 O2 Sat by Pulse Oximetry 96 Intake and Output: Intake & Output 01/24/24 01/25/24 01/26/24 01/27/24 11:59 11:59 11:59 11:59 Intake Total 810 / 810 2852 / 2852 1778 / 1778 Output Total 0 / 0 Balance 810 / 810 2852 / 2852 1778 / 1778 Physical Exam Oriented: Normal Eyes: Normal Ear: Normal Nose: Normal Throat: Red Respiratory: Normal, Right and Diminished Cardiovascular: Normal : Normal Auscultation: Bowel Sounds: Normal Tenderness: Normal Skin: Normal Musculoskeletal: Normal Psychiatric: Normal Mood Description: Calm Affect: Normal Speech Pattern: Clear and Appropriate Laboratory and Diagnostics 01/26/24 05:52 01/26/24 05:52 Labs: 01/23/24 17:30 Blood Blood Culture - Preliminary 01/23/24 17:25 Blood Blood Culture - Preliminary Laboratory WBC 12.6 X10^3/uL (3.6-10.0) H 01/26/24 05:52 RBC 3.59 X10^6/uL (4.7-6.0) L 01/26/24 05:52 Hgb 11.7 g/dL (13.5-18.0) L 01/26/24 05:52 Hct 34.9 % (42.0-54.0) L 01/26/24 05:52 MCV 97.1 fL (80.0-100.0) 01/26/24 05:52 MCH 32.5 pg (27.0-34.0) 01/26/24 05:52 MCHC 33.5 g/dL (33.0-35.0) 01/26/24 05:52 RDW 12.8 % (11.6-16.5) 01/26/24 05:52 Plt Count 122 X10^3/uL (150.0-450.0) L 01/26/24 05:52 Plt Count Comment Decreased (ADEQUATE) 01/26/24 05:52 MPV 9.2 fL (7.4-11.0) 01/26/24 05:52 Neut % (Auto) 93.9 % (42.0-75.0) H 01/26/24 05:52 Lymph % (Auto) 3.1 % (21.0-51.0) L 01/26/24 05:52 [place] % (Auto) 2.9 % (0.0-13.0) 01/26/24 05:52 Eos % (Auto) 0.0 % (0.9-2.9) L 01/26/24 05:52 Baso % (Auto) 0.1 % (0.2-1.0) L 01/26/24 05:52 Neut # (Auto) 11.8 x10^3/uL (2.2-4.8) H 01/26/24 05:52 Lymph # (Auto) 0.4 X10^3/uL (1.3-2.9) L 01/26/24 05:52 [place] # (Auto) 0.4 x10^3/uL (0.3-0.8) 01/26/24 05:52 Eos # (Auto) 0.0 x10^3/uL (0.0-0.2) 01/26/24 05:52 Baso # (Auto) 0.0 X10^3/uL (0.0-0.1) 01/26/24 05:52 Absolute Nucleated RBC 0.0 /100WBC 01/26/24 05:52 Total Counted 100 01/26/24 05:52 Neutrophils % (Manual) 84 % (39-76) H 01/26/24 05:52 Band Neutrophils % 6 % (0-10) 01/26/24 05:52 Lymphocytes % (Manual) 9 % (13-43) L 01/26/24 05:52 Monocytes % (Manual) 1 % (4-9) L 01/26/24 05:52 Eosinophils % (Manual) 2 % (0-6) 01/23/24 17:30 Plt Morphology Comment Normal (NORMAL) 01/26/24 05:52 RBC Morphology Normal (NORMAL) 01/26/24 05:52 D-Dimer 0.61 ug/ml (0.0-0.57) H 01/23/24 17:30 Sample Site Rra 01/23/24 17:44 ABG pH 7.450 (7.35-7.45) 01/23/24 17:44 ABG pCO2 43.0 mmHg (35.0-45.0) 01/23/24 17:44 ABG pO2 56.0 mmHg (80.0-100.0) L 01/23/24 17:44 ABG HCO3 29.9 mmol/L (22-26) H 01/23/24 17:44 ABG O2 Saturation 90.0 % (90-100) 01/23/24 17:44 ABG Base Excess 5.3 mmol/L (-2.0-2.0) H 01/23/24 17:44 Danielito Test Pos 01/23/24 17:44 A-a Gradient 40.0 mmHg 01/23/24 17:44 FiO2 21.0 01/23/24 17:44 Blood Gas Comments Pt sheryl well eb 01/23/24 17:44 Sodium 142 mmol/L (136-145) 01/26/24 05:52 Corrected Sodium 144 mmol/L (136-145) 01/26/24 05:52 Potassium 4.1 mmol/L (3.5-5.1) 01/26/24 05:52 Chloride 106 mmol/L (98-107) 01/26/24 05:52 Carbon Dioxide 26.9 mmol/L (21-32) 01/26/24 05:52 BUN 21 mg/dL (7-18) H 01/26/24 05:52 Creatinine 1.11 mg/dL (0.70-1.30) 01/26/24 05:52 Est GFR (MDRD) Af Amer > 60 (>60) 01/26/24 05:52 Est GFR (MDRD) Non-Af > 60 (>60) 01/26/24 05:52 Glucose 168 mg/dL (65-99) H 01/26/24 05:52 Lactic Acid 0.6 mmol/L (0.4-2.0) 01/23/24 17:30 Calcium 8.8 mg/dL (8.5-10.1) 01/26/24 05:52 Corrected Calcium 9.1 mg/dL (8.5-10.1) 01/24/24 05:37 Magnesium 1.9 mg/dL (2.0-2.9) L 01/26/24 05:52 Total Bilirubin 1.00 mg/dL (0.2-1.0) 01/24/24 05:37 AST 23 Units/L (15-37) 01/24/24 05:37 ALT 15 Units/L (12-78) 01/24/24 05:37 Alkaline Phosphatase 57 Units/L (46-116) 01/24/24 05:37 Creatine Kinase 92 Units/L (39-308) 01/23/24 20:30 Troponin I High Sens 9.1 ng/L (4.0-60.0) 01/23/24 20:30 B-Natriuretic Peptide 236 pg/mL (0-79) H 01/23/24 17:30 Total Protein 6.6 g/dL (6.4-8.2) 01/24/24 05:37 Albumin 3.1 g/dL (3.4-5.0) L 01/24/24 05:37 Globulin 3.5 g/dL (2.5-4.5) 01/24/24 05:37 Albumin/Globulin Ratio 0.9 Ratio (1.1-2.1) L 01/24/24 05:37 SARS-CoV-2 (PCR) Negative (NEGATIVE) 01/23/24 17:24 Influenza Type A (PCR) Negative (NEGATIVE) 01/23/24 17:24 Influenza Type B (PCR) Negative (NEGATIVE) 01/23/24 17:24 RSV (PCR) Negative (NEGATIVE) 01/23/24 17:24 S. pyogenes (TEM-PCR) Not detected (NOT DETECT) 01/23/24 17:24 Plan (1) Pneumonia: Status: Acute Qualifiers: Aspiration pneumonia type: unspecified Laterality: right Lung location: lower lobe of lung Pneumonia type: aspiration pneumonia Qualified Code(s): J69.0 - Pneumonitis due to inhalation of food and vomit Narrative Support Text: Improving. Plan: IV doxycycline and Fortaz for suspected aspiration pneumonia. Follow-up sputum culture when available. Discontinue Zithromax. (2) Hypoxia: Status: Acute Plan: O2 sat supplementation via nasal cannula. (3) Chest pain, rule out acute myocardial infarction: Status: Acute Plan: Troponins were checked x 2 and they were both normal. We stopped after that as there were no need to continue further checking. (4) Elevated d-dimer: Status: Acute Plan: I discussed ordering a VQ scan with the patient as he may not want to go and do that I seriously doubt that he has a PE. He did only have a slight elevation in the D-dimer number and he does have underlying pneumonia which can cause an elevation in D-dimer because it is an inflammatory process. (5) Thoracic aortic aneurysm (TAA): Status: Chronic (6) Carotid stenosis: Status: Chronic (7) History of throat cancer: Status: Chronic Plan: Pured food to the consistency of honey. (8) Hepatitis B: Status: Chronic Qualifiers: Viral hepatitis chronicity: chronic Hepatic coma status: without hepatic coma Hepatitis delta agent presence: without delta-agent Qualified Code(s): B18.1 - Chronic viral hepatitis B without delta-agent
[2024-01-26 14:20] LABS: ALANINE AMINOTRANSFERASE 18 Units/L (12-78); ALBUMIN 3.2 g/dL (3.4-5.0); ALKALINE PHOSPHATASE 53 Units/L (46-116); ASPARTATE AMINO TRANSFERASE 22 Units/L (15-37); COR CA(FOR HYPOALB) 9.6 mg/dL (8.5-10.1); TOTAL PROTEIN 6.7 g/dL (6.4-8.2)
[2024-01-26 14:53] LABS: ALANINE AMINOTRANSFERASE 16 Units/L (12-78); ALKALINE PHOSPHATASE 53 Units/L (46-116); ASPARTATE AMINO TRANSFERASE 19 Units/L (15-37); COR CA(FOR HYPOALB) 9.6 mg/dL (8.5-10.1); TOTAL PROTEIN 6.4 g/dL (6.4-8.2)
[2024-01-26] MEDS ORDERED: CONSULT PHARMACY - POTASSIUM & MAGNESIUM XX SCH (15:00)
[2024-01-26] MEDS: MAG-OX TAB PO SCH (21:01)
[2024-01-27 06:26] LABS: BASOPHILS % (AUTO) 0.1 % (0.2-1.0); HEMATOCRIT 36.1 % (42.0-54.0); HEMOGLOBIN 12.2 g/dL (13.5-18.0); LYMPHOCYTES # (AUTO) 0.5 X10^3/uL (1.3-2.9); LYMPHOCYTES % (AUTO) 5.5 % (21.0-51.0); MEAN CORPUSCULAR HEMOGLOBIN 32.6 pg (27.0-34.0); MEAN CORPUSCULAR HGB CONC 33.8 g/dL (33.0-35.0); MEAN CORPUSCULAR VOLUME 96.4 fL (80.0-100.0); MEAN PLATELET VOLUME 9.3 fL (7.4-11.0); MONOCYTES # (AUTO) 0.3 x10^3/uL (0.3-0.8); MONOCYTES % (AUTO) 2.9 % (0.0-13.0); NEUTROPHILS # (AUTO) 8.6 x10^3/uL (2.2-4.8); NEUTROPHILS % (AUTO) 91.5 % (42.0-75.0); PLATELET COUNT 128 X10^3/uL (150.0-450.0); RED BLOOD COUNT 3.74 X10^6/uL (4.7-6.0); RED CELL DISTRIBUTION WIDTH 12.7 % (11.6-16.5); WHITE BLOOD COUNT 9.4 X10^3/uL (3.6-10.0)
[2024-01-27 06:54] LABS: ALANINE AMINOTRANSFERASE 22 Units/L (12-78); ALKALINE PHOSPHATASE 61 Units/L (46-116); ASPARTATE AMINO TRANSFERASE 19 Units/L (15-37); BLOOD UREA NITROGEN 20 mg/dL (7-18); CALCIUM 8.7 mg/dL (8.5-10.1); CARBON DIOXIDE 29.4 mmol/L (21-32); CHLORIDE 106 mmol/L (98-107); COR CA(FOR HYPOALB) 9.5 mg/dL (8.5-10.1); COR NA(FOR HYPERGLY) 144 mmol/L (136-145); CREATININE 0.94 mg/dL (0.70-1.30); GLUCOSE 131 mg/dL (65-99); SODIUM 143 mmol/L (136-145); TOTAL PROTEIN 6.4 g/dL (6.4-8.2); eGFR NON BLACK RACES > 60 (>60)
[2024-01-27 07:23] LABS: BAND NEUTROPHILS % 7 % (0-10); PLATELET MORPHOLOGY COMMENT NORMAL (NORMAL)
[2024-01-27 08:27] VITALS: TEMP 98.2
[2024-01-27] MEDS: VIBRAMYCIN IV ONE (08:35)
--- NOTE | 2024-01-27 09:27 | RAD ---
EXAM: CHEST HISTORY: Shortness of breath; COMPARISON: January 26, 2024. TECHNIQUE: Frontal view of the chest was submitted for interpretation. FINDINGS: The cardiomediastinal silhouette is stable in size. Lungs show no focal consolidation, pneumothorax , or pleural fluid. IMPRESSION: No acute cardiopulmonary process. THIS IS AN ELECTRONICALLY VERIFIED FINAL REPORT 01/27/2024 9:23 AM - Electronically signed by Rad Bowen MD
[2024-01-27 14:31] VITALS: BP 148/75; PULSE 81; RESP 20; O2SAT 93
--- NOTE | 2024-01-28 12:56 | PCM.DCPLAN ---
DISCHARGE SUMMARY Admission Date Date of Admission: 01/23/24 Discharge Date Discharge Date: 01/27/24 Admission Diagnoses (1) Pneumonia: Status: Acute (2) Hypoxia: Status: Acute (3) Chest pain, rule out acute myocardial infarction: Status: Acute (4) Elevated d-dimer: Status: Acute (5) Thoracic aortic aneurysm (TAA): Status: Chronic (6) Carotid stenosis: Status: Chronic (7) History of throat cancer: Status: Chronic (8) Hepatitis B: Status: Chronic Discharge Diagnoses Discharge Diagnosis: 1. Pneumoniaright lung 2. Hypoxia 3. Chest pain rule out [place] 4. Elevated D-dimer 5. Thoracic aortic aneurysm, stable 6. Chronic carotid stenosisstable 7. History of throat cancerstable 8. History of hepatitis Bstable Discharge Medications Discharge Medications: Home Medication List atorvastatin 80 mg tablet 80 mg PO QDAY 01/23/24 [History] fludrocortisone 0.1 mg tablet 0.1 mg PO QDAY 01/23/24 [History] levalbuterol tartrate 45 mcg/actuation aerosol inhaler 2 puff inhalation Q6HR 01/23/24 [History] midodrine 5 mg tablet 5 mg PO BID 01/23/24 [History] silodosin 4 mg capsule 4 mg PO DAILY 01/24/24 [History] cefpodoxime 200 mg tablet 200 mg PO Q12H #14 tabs 01/27/24 [Rx] levofloxacin 500 mg tablet 500 mg PO Q24H #7 tabs 01/27/24 [Rx] methylprednisolone 4 mg tablets in a dose pack (Medrol (Alex)) See Rx Instructions .Route .COMPLEX #1 ea 01/27/24 [Rx] Prescriptions: cefpodoxime [facility] levofloxacin [facility] methylprednisolone [Medrol (Alex)] [facility] Hospital Course Latest Lab Results: Laboratory Last Values WBC 9.4 X10^3/uL (3.6-10.0) 01/27/24 05:55 RBC 3.74 X10^6/uL (4.7-6.0) L 01/27/24 05:55 Hgb 12.2 g/dL (13.5-18.0) L 01/27/24 05:55 Hct 36.1 % (42.0-54.0) L 01/27/24 05:55 MCV 96.4 fL (80.0-100.0) 01/27/24 05:55 MCH 32.6 pg (27.0-34.0) 01/27/24 05:55 MCHC 33.8 g/dL (33.0-35.0) 01/27/24 05:55 RDW 12.7 % (11.6-16.5) 01/27/24 05:55 Plt Count 128 X10^3/uL (150.0-450.0) L 01/27/24 05:55 Plt Count Comment Decreased (ADEQUATE) 01/27/24 05:55 MPV 9.3 fL (7.4-11.0) 01/27/24 05:55 Neut % (Auto) 91.5 % (42.0-75.0) H 01/27/24 05:55 Lymph % (Auto) 5.5 % (21.0-51.0) L 01/27/24 05:55 [place] % (Auto) 2.9 % (0.0-13.0) 01/27/24 05:55 Eos % (Auto) 0.0 % (0.9-2.9) L 01/27/24 05:55 Baso % (Auto) 0.1 % (0.2-1.0) L 01/27/24 05:55 Neut # (Auto) 8.6 x10^3/uL (2.2-4.8) H 01/27/24 05:55 Lymph # (Auto) 0.5 X10^3/uL (1.3-2.9) L 01/27/24 05:55 [place] # (Auto) 0.3 x10^3/uL (0.3-0.8) 01/27/24 05:55 Eos # (Auto) 0.0 x10^3/uL (0.0-0.2) 01/27/24 05:55 Baso # (Auto) 0.0 X10^3/uL (0.0-0.1) 01/27/24 05:55 Absolute Nucleated RBC 0.0 /100WBC 01/27/24 05:55 Total Counted 100 01/27/24 05:55 Neutrophils % (Manual) 86 % (39-76) H 01/27/24 05:55 Band Neutrophils % 7 % (0-10) 01/27/24 05:55 Lymphocytes % (Manual) 7 % (13-43) L 01/27/24 05:55 Monocytes % (Manual) 1 % (4-9) L 01/26/24 05:52 Eosinophils % (Manual) 2 % (0-6) 01/23/24 17:30 Plt Morphology Comment Normal (NORMAL) 01/27/24 05:55 RBC Morphology Normal (NORMAL) 01/27/24 05:55 D-Dimer 0.61 ug/ml (0.0-0.57) H 01/23/24 17:30 Sample Site Rra 01/23/24 17:44 ABG pH 7.450 (7.35-7.45) 01/23/24 17:44 ABG pCO2 43.0 mmHg (35.0-45.0) 01/23/24 17:44 ABG pO2 56.0 mmHg (80.0-100.0) L 01/23/24 17:44 ABG HCO3 29.9 mmol/L (22-26) H 01/23/24 17:44 ABG O2 Saturation 90.0 % (90-100) 01/23/24 17:44 ABG Base Excess 5.3 mmol/L (-2.0-2.0) H 01/23/24 17:44 Danielito Test Pos 01/23/24 17:44 A-a Gradient 40.0 mmHg 01/23/24 17:44 FiO2 21.0 01/23/24 17:44 Blood Gas Comments Pt sheryl well eb 01/23/24 17:44 Sodium 143 mmol/L (136-145) 01/27/24 05:55 Corrected Sodium 144 mmol/L (136-145) 01/27/24 05:55 Potassium 4.0 mmol/L (3.5-5.1) 01/27/24 05:55 Chloride 106 mmol/L (98-107) 01/27/24 05:55 Carbon Dioxide 29.4 mmol/L (21-32) 01/27/24 05:55 BUN 20 mg/dL (7-18) H 01/27/24 05:55 Creatinine 0.94 mg/dL (0.70-1.30) 01/27/24 05:55 Est GFR (MDRD) Af Amer > 60 (>60) 01/27/24 05:55 Est GFR (MDRD) Non-Af > 60 (>60) 01/27/24 05:55 Glucose 131 mg/dL (65-99) H 01/27/24 05:55 Lactic Acid 0.6 mmol/L (0.4-2.0) 01/23/24 17:30 Calcium 8.7 mg/dL (8.5-10.1) 01/27/24 05:55 Corrected Calcium 9.5 mg/dL (8.5-10.1) 01/27/24 05:55 Magnesium 2.1 mg/dL (2.0-2.9) 01/27/24 05:55 Total Bilirubin 0.40 mg/dL (0.2-1.0) 01/27/24 05:55 AST 19 Units/L (15-37) 01/27/24 05:55 ALT 22 Units/L (12-78) 01/27/24 05:55 Alkaline Phosphatase 61 Units/L (46-116) 01/27/24 05:55 Creatine Kinase 92 Units/L (39-308) 01/23/24 20:30 Troponin I High Sens 9.1 ng/L (4.0-60.0) 01/23/24 20:30 B-Natriuretic Peptide 236 pg/mL (0-79) H 01/23/24 17:30 Total Protein 6.4 g/dL (6.4-8.2) 01/27/24 05:55 Albumin 3.0 g/dL (3.4-5.0) L 01/27/24 05:55 Globulin 3.4 g/dL (2.5-4.5) 01/27/24 05:55 Albumin/Globulin Ratio 0.9 Ratio (1.1-2.1) L 01/27/24 05:55 SARS-CoV-2 (PCR) Negative (NEGATIVE) 01/23/24 17:24 Influenza Type A (PCR) Negative (NEGATIVE) 01/23/24 17:24 Influenza Type B (PCR) Negative (NEGATIVE) 01/23/24 17:24 RSV (PCR) Negative (NEGATIVE) 01/23/24 17:24 Resp Viral Panel (PCR) See scanned report 01/23/24 23:15 S. pyogenes (TEM-PCR) Not detected (NOT DETECT) 01/23/24 17:24 Hospital Course: The patient is a pleasant 78-year-old white male. He has had stabbing chest pain, nausea, chills, and sobbing that began today. 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 The patient had been feeling good before today. He has a h/o tobacco use that began at age 9-10 until age 38. 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 The patient and I feel like he probably recently aspirated some food and he is developing aspiration pneumonia now. He does have a h/o thoracic aortic Aneurysm and carotid stenosis. 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 The patient denies hemoptysis, palpitations, syncope, back pain, and extremity weakness. This morning, the patient is in good spirits; however, he does have some right anterior rhonchi. The chest x-ray showed a right opacity consistent with pneumonia. He is currently receiving IV azithromycin and Fortaz. We will continue this on him today and repeat a chest x-ray tomorrow. If it is clearing and he is feeling better, we might consider discharging him home, but if he is still not feeling well, we probably will keep him one more day. The patient's pneumonia continue to improved over the next few days. He was concerned about going home too early as he was afraid his pneumonia may get worse. He does have a history he states of aspiration pneumonia in the past that was very bad. I told him he seems to be responding well to therapy at this time. We have been treating him with IV Fortaz and Levaquin and his white blood cell count is improving daily as chest x-ray is improving as well 2. On the third day his chest x-ray clear but he still had an elevated white count a little bit [place] was continue with IV antibiotics for another 24 hours to see if it normalizes. The following morning his white count had normalized and his chest x-ray was clear the day before. He sounded good he was feeling good so we went ahead and discharge him home. We will resume you on his regular home meds and we added Levaquin 500 milligrams daily x 1 week, cefpodoxime 2 mg p.o. twice daily x 1 week as well as Medrol Dosepak take as directed. The patient already had a nebulizer and medication at home to take for dyspnea/shortness of breath. The patient will be discharged home in stable condition and will be following up with his primary care provider in a week.
== END 2024-01-27 13:30 | disposition home or self-care (01) | DRG 178 ==
LOC: MED/SURG 17:15 → ER 17:15 → MED/SURG 23:29
PROVIDERS: ADMIT Family Medicine; ATTEND Family Medicine